=== PATIENT | male | born 1950 | race Caucasian/White ===

== ENCOUNTER → 2020-10-16 15:20 | Outpatient (BNVA) | payer MEDICARE, OTHER, SELFPAY | PROVIDERS: PCP Internal Medicine; Referring Provider Internal Medicine; Visit Provider Surgery | DX: S01.01XD Laceration without foreign body of scalp, subsequent encounter (principal) | CPT/HCPCS: 99202 ==

== ENCOUNTER → 2020-12-25 09:03 | Outpatient (BNVA) | payer MEDICARE, OTHER, SELFPAY | PROVIDERS: PCP Internal Medicine; Visit Provider Urology | DX: R39.12 Poor urinary stream (principal); N40.1 Benign prostatic hyperplasia with lower urinary tract symptoms; N13.8 Other obstructive and reflux uropathy | CPT/HCPCS: 99212 ==

== ENCOUNTER 2021-12-24 06:41 | Outpatient (REF) | payer MEDICARE, OTHER, SELFPAY ==
[2021-12-24 08:10] LABS: Prostate Specific Antigen 3.47 ng/mL (<0.05-4.0)
== END 2021-12-24 06:42 | disposition home or self-care (01) ==
LOC: HO.LAB 06:41
PROVIDERS: PCP Internal Medicine; Visit Provider Urology
DX: Z12.5 Encounter for screening for malignant neoplasm of prostate (principal); N40.1 Benign prostatic hyperplasia with lower urinary tract symptoms; N13.8 Other obstructive and reflux uropathy
CPT/HCPCS: 36415; 84153

== ENCOUNTER → 2021-12-29 08:27 | Outpatient (BNVA) | payer MEDICARE, OTHER, SELFPAY | PROVIDERS: PCP Internal Medicine; Visit Provider Urology | DX: N40.1 Benign prostatic hyperplasia with lower urinary tract symptoms (principal); N13.8 Other obstructive and reflux uropathy; R39.12 Poor urinary stream | CPT/HCPCS: 51798; 99212 ==

== ENCOUNTER 2022-07-21 10:31 | Observation (INO) | payer MEDICARE, OTHER, SELFPAY ==
--- NOTE | ~2022-07-21 | CT_ITS ---
EXAMINATION: CT ABDOMEN AND PELVIS WITHOUT CONTRAST CLINICAL INFORMATION: Abdominal pain COMPARISON: 09/07/2017 TECHNIQUE: Multidetector volumetric imaging was performed from the superior aspect of the liver through the pubic symphysis. Sagittal and coronal reformatted images were obtained on the technologist's workstation. This CT examination was performed using dose optimization techniques as appropriate, variously including the following: *Automated exposure control *Adjustment of mA and/or kV according to patient size (this includes techniques or standardized protocols for targeted exams where dose is matched to indication/reason for exam; i.e. extremities or head) *Use of iterative reconstruction technique DLP: 597 mGy-cm FINDINGS: LUNG BASES: Stable 3 mm left lower lobe nodule on image 8/100, most consistent with a benign etiology. LIVER, GALLBLADDER, AND BILIARY TREE: The liver is normal in size, shape, and attenuation. No focal hepatic lesion or biliary ductal dilatation is present. Multiple layering gallstones are present. No appreciable pericholecystic inflammation. PANCREAS: Mild fatty atrophy. SPLEEN: Mildly enlarged, measuring 14.1 cm in the axial plane. ADRENAL GLANDS: Unremarkable. KIDNEYS AND URETERS: Bilateral renal sinus cysts are suspected, without convincing hydronephrosis or obstructing calculus. Nonspecific bilateral perinephric stranding. BLADDER: Partially distended. Small amount of ill-defined calcification is noted in the right ureterovesicular junction, extending for approximately 1 cm, for which underlying bladder wall mass cannot be excluded. GASTROINTESTINAL TRACT: No evidence of bowel obstruction. There is focal wall thickening with surrounding inflammation at the site of a distal descending colon diverticulum, most consistent with acute diverticulitis. No pericolic abscess or free air is seen. The appendix is unremarkable. ABDOMINAL WALL: No significant hernia is appreciated. LYMPH NODES: Normal. VASCULAR: Scattered atherosclerotic calcifications. PELVIC VISCERA: Prostate gland appears enlarged, measuring up to 5.8 x 5.0 cm in the axial plane. OSSEOUS STRUCTURES: Scattered degenerative changes noted in the spine. CT/CT abdomen pelvis wo con IMPRESSION: 1. Diverticulitis of the distal descending colon. Correlation with recent or followup colonoscopy is advised to exclude an underlying mass lesion. 2. Small amount of ill-defined calcification in the bladder near the right ureterovesicular junction. Underlying bladder wall mass cannot be excluded, and further workup with cystoscopy is recommended. 3. Cholelithiasis. 4. Enlarged prostate gland. This critical result was discussed with Shalonda Solorzano NP on 07/21/2022 11:30 PM, and it was ascertained that the content and urgency of the report was understood at the time of direct communication.
--- NOTE | ~2022-07-21 | US_ITS ---
EXAMINATION: US ABDOMEN LIMITED CLINICAL INFORMATION: Right upper quadrant pain. COMPARISON: CT scan of the abdomen and pelvis from earlier today. Renal ultrasound dated 09/30/2017. TECHNIQUE: Real-time imaging of the right upper quadrant abdominal viscera. FINDINGS: PANCREAS: Visualized portions unremarkable. LIVER: Increased hepatic echotexture. No focal abnormality. GALLBLADDER: Multiple small gallstones without significant mural thickening or pericholecystic fluid. COMMON BILE DUCT: Normal in caliber measuring 0.3 cm in diameter. RIGHT KIDNEY: 12.6 cm. Anechoic parapelvic cysts are again seen. Tiny anechoic cortically based cyst measures 0.6 cm per No nephrolithiasis. Color Doppler showed no abnormal vascular flow. FREE FLUID: None. US/US abdomen limited IMPRESSION: 1. Hepatic steatosis. 2. Cholelithiasis without evidence for acute cholecystitis. 3. Right renal cysts demonstrate benign features correlating with previous CT findings.
[2022-07-21 10:35] VITALS: BP 120/77; PULSE 53; RESP 18; TEMP 36.8; O2SAT 97; BMI 30.1
[2022-07-21 13:17] LABS: MANUAL DIFF FLAG NO
[2022-07-21 13:20] LABS: Basophils Percent Auto 0.5 % (0-2); Eosinophils Absolute Auto 0.2 X10*3/uL (0.0-0.4); Hematocrit 42.6 % (42.0-52.0); Hemoglobin 14.1 g/dl (14.0-18.0); Imm Gran Abs Auto 0.02 X10*3/uL (0.00-0.03); Imm Gran Pct Auto 0.3 % (0.0-0.4); Lymphocytes Absolute Auto 1.4 X10*3/uL (1.2-4.9); Lymphocytes Percent Auto 18.4 % (20-40); Mean Corpuscular HGB Conc 33.1 g/dl (31.0-36.0); Mean Corpuscular Hemoglobin 28.5 pg (27.0-33.0); Mean Corpuscular Volume 86.1 fL (80.0-98.0); Mean Platelet Volume 9.1 fL (9.4-12.4); Monocytes Absolute Auto 0.5 X10*3/uL (0.1-1.2); Neutrophils Absolute Auto 5.5 x10*3/uL (2.0-8.3); Neutrophils Percent Auto 71.8 % (45-73); Platelet Count 172 X10*3/uL (160-400); Red Blood Count 4.95 X10*6/uL (4.60-5.80); Red Cell Distribution Width 13.4 % (11.0-16.0); White Blood Count 7.7 X10*3/uL (4.8-10.8)
[2022-07-21 13:33] LABS: COVID-19 Test Negative (Negative); IDNOW Serial# 16C4AD1C
[2022-07-21 13:42] LABS: Anion Gap 14 (12-20); Blood Urea Nitrogen 13 mg/dL (9-16); Calcium 9.5 mg/dL (8.4-10.2); Carbon Dioxide 31 mmol/L (22-29); Chloride 101 mmol/L (96-108); Creatinine Clr Calc Pharmacy 63.7; Estimated Glomerular Filt Rate 57; Glucose Random 99 mg/dL (60-115); Potassium 4.7 mmol/L (3.3-5.1); Sodium 141 mmol/L (135-145)
[2022-07-21 21:11] VITALS: BP 142/81; PULSE 50; RESP 18; TEMP 36.4; O2SAT 99
[2022-07-21 22:08] VITALS: BP 162/79; PULSE 52; RESP 16; TEMP 36.5; O2SAT 100
[2022-07-21 22:30] LABS: Alanine Aminotransferase 19 U/L (0-40); Albumin Level 4.3 g/dL (3.5-5.0); Alkaline Phosphatase 72 U/L (39-117); Aspartate Amino Transferase 16 U/L (5-37); Bilirubin Direct 0.9 mg/dL (0.0-0.5); Bilirubin Total 3.1 mg/dL (0.0-1.0); Lipase 28 U/L (8-78); Total Protein 7.1 g/dL (6.5-8.0)
--- NOTE | 2022-07-21 22:58 | ED_ITS ---
HPI - General Adult General Chief complaint: General Medical Stated complaint: lower abd pain Time Seen by Provider: 07/21/22 21:40 Source: patient Mode of arrival: ambulatory Limitations: no limitations History of Present Illness HPI narrative: This 71-year-old male with history of diverticulitis and BPH who presents to the emergency department with a complaint of left-sided abdominal pain for the past 3 days. He states that his abdominal pain is nonradiatin, is sharp in character and has been worsening over the past 3 days. He tells me that he feels bloated. He states that eating makes his pain worse, has not eaten since yesterday morning. He states that he is still able to pass flatus. Last bowel movement was earlier this morning and he reports that his bowel movements fluctuate between soft stool and loose dorothea. He does not have any urinary concerns however he tells me that his urine has been dark in coloration. Last colonoscopy was 2-3 years ago and it was normal. He reports a 5 year history of diverticulitis, last flare-up was 3 years ago, has not followed up with his GI in 3 years has his GI a retired and he has not found a new 1. Denies nausea, vomiting, fever, chills, back pain, hematuria, diarrhea, constipation. Onset (ago): day(s) (3) Location: abdomen Radiation: non-radiation Severity: moderate Quality: sharp Pain Consistency: constant Relieving factors: none Related Data Previous Rx's Medication Instructions Recorded lidocaine 5 % topical patch 1 patch topical DAILY 15 days #15 02/07/22 (Lidoderm) ea valacyclovir 1 gram tablet 1,000 mg PO Q8H 10 days #30 tabs 02/07/22 Allergies Allergy/AdvReac Type Severity Reaction Status Date / Time No Known Allergies Allergy Verified 12/29/21 08:32 [No Known Allergies*] Review of Systems Review of Systems: Constitutional : No Weight loss, No Fever, No Chills, No Fatigue, No Malaise ENT/Mouth : No sore throat, No Rhinorrhea Eyes: No Eye Pain, No Swelling, No Redness Cardiovascular : No Chest Pain, No SOB, No Dyspnea on Exertion, No Orthopnea, No Edema, No Palpitations Respiratory : No Cough, No Sputum, No Wheezing Gastrointestinal : No Nausea, No Vomiting, No Diarrhea, No Constipation, + abdominal Pain, No Hematochezia, No Melena Genitourinary : No Dysuria, No Urinary Frequency, No Hematuria, Musculoskeletal : No joint pain, No Myalgias, No Joint Swelling Skin : No Skin Lesions, No rash Neuro : No Weakness, No Numbness, No Dizziness, No Headache All other systems reviewed and are negative Yes all other systems are reviewed and are negative [facility] Past Medical History Attestation statement: The following information was validated with the patient. Source: old records reviewed and nursing notes reviewed Medical History Blunt trauma of neck Scalp laceration Traumatic arthropathy of right shoulder Family History Family History Father History of lung cancer Social History Social History Alcohol intake: never Patient Tobacco Use Status: Never used Tobacco Use of substances other than those prescribed or required for medical reasons: No Advance Directives: No Advance Directives Information Provided: No Physical Exam ED Vital Signs: Vital Signs - 24 hr 07/21/22 10:35 07/21/22 21:11 07/21/22 22:08 Temperature 98.2 F 97.5 F 97.7 F Pulse Rate 53 50 52 Respiratory Rate 18 18 16 Blood Pressure 120/77 142/81 H 162/79 H Pulse Oximetry 97 99 100 Oxygen Delivery Method Room Air Room Air 07/21/22 23:11 07/21/22 23:22 Temperature Pulse Rate 62 Respiratory Rate 16 16 Blood Pressure 143/75 H Pulse Oximetry 97 Oxygen Delivery Method Room Air BMI result Body Mass Index 30.1 vss, bradycardic Appearance: Alert.? Oriented X3.? No acute distress.? Patient lying comfortably on the bed secondary to pain. Head: Normocephalic, atraumatic, no step-offs or deformities Eyes: Pupils equal, round and reactive to light.? ENT: Pharynx normal.? Neck: Normal inspection.? Neck supple.? CVS: Normal heart rate and rhythm.? Pulses normal.? Respiratory: No respiratory distress.? Breath sounds normal.? Abdomen: Soft, distended, tender to palpation in the upper and left lower quadrants, hypoactive bowel sounds throughout. No rebound tenderness or guarding. Skin: Skin warm and dry.? Normal skin color.? Normal skin turgor.? Extremities: No lower extremity edema.? No calf ttp. 5/5 strength to bilateral upper and lower extremities Back: No midline tenderness, no C-spine tenderness, full range of motion, no CVA tenderness bilaterally Neuro: Oriented X 3.? No motor deficit.? No sensory deficit. Course Reevaluation(s) Reevaluation #1: CBC without infection. Chemistry significant for elevated bilirubin. Lipase within normal limits. COVID negative. Upon re-evaluation patient with slight tenderness to palpation in the right upper quadrant. States that it radiates to his left abdomen. Time: 23:07 Reevaluation #2: CT of the abdomen and pelvis with acute diverticulitis, patient given levofloxacin, metronidazole. CT of the abdomen pelvis with possible mass to bladder, educated patient on this, he verbalizes understanding. Ultrasound of the right upper quadrant with cholelithiasis however no acute cholecystitis. I do not suspect choledocholithiasis. After repeat exam patient only tender to left lower quadrant. I did a p.o. challenge on this patient, patient unable to tolerate p.o., complaining of nausea, vomiting. Patient has not been able to eat even prior to arriving to the emergency department still does not feel like he is able to eat, I do not feel comfortable discharging this patient home as he is not tolerating p.o., failed p.o. challenge. At this time patient will be admitted to the hospitalist for further intervention and treatment. Medical Decision Making [facility] Narrative Medical decision making narrative: [id number] This 71-year-old male presents to the ED with complaints of left-sided abdominal pain x3 days. History that diverticulitis requiring hospitalization. Physical exam significant for distended abdomen, tender to palpation in the left lower and left upper quadrants. Cardiac exam significant for regular rate and bradycardic rhythm. Lungs clear. Likely diverticulitis. Unlikely pancreatitis, appendicitis, cholecystitis. Plan at this time is to order basic labs, UA, CT of the abdomen and pelvis. Lab Data Result diagrams: 07/21/22 13:10 07/21/22 13:10 Labs: Lab Results 07/21/22 07/21/22 07/21/22 Range/Units 13:10 13:10 13:10 WBC 7.7 (4.8-10.8) X10*3/uL RBC 4.95 (4.60-5.80) X10*6/uL Hgb 14.1 (14.0-18.0) g/dl Hct 42.6 (42.0-52.0) % MCV 86.1 (80.0-98.0) fL MCH 28.5 (27.0-33.0) pg MCHC 33.1 (31.0-36.0) g/dl RDW 13.4 (11.0-16.0) % Plt Count 172 (160-400) X10*3/uL MPV 9.1 L (9.4-12.4) fL Immature Gran % (Auto) 0.3 (0.0-0.4) % Neut % (Auto) 71.8 (45-73) % Lymph % (Auto) 18.4 L (20-40) % [place] % (Auto) 7.0 (2-11) % Eos % (Auto) 2.0 (0-4) % Baso % (Auto) 0.5 (0-2) % Lymph # (Auto) 1.4 (1.2-4.9) X10*3/uL [place] # (Auto) 0.5 (0.1-1.2) X10*3/uL Eos # (Auto) 0.2 (0.0-0.4) X10*3/uL Baso # (Auto) 0.0 (0.0-0.2) X10*3/uL Abs Immat Gran (auto) 0.02 (0.00-0.03) X10*3/uL Absolute Neuts (auto) 5.5 (2.0-8.3) x10*3/uL Absolute Nucleated RBC 0.000 (0.0-0.012) X10*3/uL Nucleated RBC % (auto) 0.0 (0.0-0.2) /100WBC Sodium 141 (135-145) mmol/L Potassium 4.7 (3.3-5.1) mmol/L Chloride 101 (96-108) mmol/L Carbon Dioxide 31 H (22-29) mmol/L Anion Gap 14 (12-20) BUN 13 (9-16) mg/dL Creatinine 1.25 (0.5-1.4) mg/dL Estim Creat Clear Calc 63.7 Estimated GFR 57 Random Glucose 99 (60-115) mg/dL Calcium 9.5 (8.4-10.2) mg/dL Total Bilirubin 3.1 H (0.0-1.0) mg/dL Direct Bilirubin 0.9 H (0.0-0.5) mg/dL AST 16 (5-37) U/L ALT 19 (0-40) U/L Alkaline Phosphatase 72 (39-117) U/L Total Protein 7.1 (6.5-8.0) g/dL Albumin 4.3 (3.5-5.0) g/dL Lipase 28 (8-78) U/L COVID-19 (PIPE) Negative (Negative) COVID-19 Clin Com See Note Critical Care Time Critical Care Time Critical Care Time: No Discharge Plan Discharge Clinical Impression: Diverticulitis, Nausea & vomiting, Bladder mass, Hyperbilirubinemia Patient Disposition: Admitted As Inpatient Prescriptions: No Action valacyclovir 1 gram tablet 1,000 mg PO Q8H 10 Days Qty: 30 0RF lidocaine [Lidoderm] 5 % adhesive patch,medicated 1 patch topical DAILY 15 Days Qty: 15 0RF Rx Instructions: leave on most painful area for up to 12 hrs
[2022-07-21 23:11] VITALS: RESP 16
[2022-07-21] MEDS: Morphine Sulfate 4 MG/ML CARTRIDGE IVPUSH (23:11)
[2022-07-21] MEDS: 0.9 % Sodium Chloride 1,000 ML 999 ML IV (23:12)
[2022-07-21 23:22] VITALS: BP 143/75; PULSE 62; RESP 16; O2SAT 97
[2022-07-21] MEDS: metroNIDAZOLE 500 MG TABLET PO (23:48)
[2022-07-21] MEDS: levoFLOXacin 750 MG TABLET PO (23:48)
--- NOTE | 2022-07-22 | ECG_ITS ---
Test Reason : medical clearance Blood Pressure : / mmHG Vent. Rate : 058 BPM Atrial Rate : 058 BPM P-R Int : 172 ms QRS Dur : 076 ms QT Int : 448 ms P-R-T Axes : 053 -02 012 degrees QTc Int : 439 ms Sinus bradycardia Otherwise normal ECG When compared with ECG of 13-MAR-2019 06:43, No significant change was found Referred By: Johann Oconnell Electronically Signed By:NEREIDA SHIN
[2022-07-22 06:18] LABS: Appearance Urine Clear; Color Urine Dark Yellow; Glucose Urine UA Negative (Negative); Leukocyte Esterase Urine Negative (Negative); Nitrite Urine Negative (Negative); PH 5.5 (5.0-8.0); Specific Gravity - Urine 1.015 (1.005-1.025); Urine Blood Negative (Negative); Urine Ketones Trace mg/dL (Negative); Urine Protein 30 (1+) mg/dL (Neg-Trace)
[2022-07-22 06:23] LABS: Bacteria Urine None Seen (None Seen); Hyaline Casts Urine 0-2 /LPF (0-2); Squamous Epithelial Cell Urine 0-2 /HPF (0-2); WBC Urine 0-5 /HPF (0-5)
--- NOTE | 2022-07-22 06:31 | P.HPHOSP_ITS ---
History of Present Illness Date of Service: 07/22/22 Chief Complaint: Abdominal pain this is a 71-year-old male with past medical history of BPH who presents to the hospital with complaints of left lower quadrant abdominal pain. Patient reports the pain started on Tuesday, initially 10/10, subsided to 7/10, constant, sharp,nonradiating, worst with eating. Patient reports that he has not been eating or drinking much since Tuesday because he is afraid of worsening his condition. Patient has some nausea and dry heaving after trying to drink some water last night after taking the p.o. antibiotics, he reports that he was unable to tolerate after being NPO for couple of days. Patient denies any fever chills,No lower extremity edema. No chest pain,or shortness of breath. He has been having dark urine with no frequency, urgency or dysuria last colonoscopy 3 yrs ago-reports normal per pt On arrival to the ED patient hemodynamically stable with no significant abnormal vitals labs are significant for WBC count 7.7, hemoglobin 14.1, total bili of 3.1, direct bili of 0.9, AST of 16, ALT of 19, UA negative, Abdominal pelvic CT shows diverticulitis of the distal descending colon, abnormal calcification in the bladder near the right ureterovesicular region- mass cannot be excluded given that patient was unable to tolerate p.o. he will be admitted for IV antibiotics Review of Systems Review of Systems: Yes all other systems are reviewed and are negative [facility] Medical History Blunt trauma of neck Scalp laceration Traumatic arthropathy of right shoulder Family History Father History of lung cancer Social History Alcohol intake: never Patient Tobacco Use Status: Never used Tobacco Use of substances other than those prescribed or required for medical reasons: No Advance Directives: No Advance Directives Information Provided: No Meds Allergies Allergy/AdvReac Type Severity Reaction Status Date / Time No Known Allergies Allergy Verified 12/29/21 08:32 [No Known Allergies*] Active Medications: Current Medications Acetaminophen (Acetaminophen 325 Mg Tablet) 650 mg PO Q6H PRN PRN Reason: Pain, Mild (Pain Scale 1-3) Docusate Sodium (Docusate Sodium 100 Mg Capsule) 100 mg PO DAILY PRN PRN Reason: Constipation Enoxaparin Sodium (Enoxaparin Sodium 40 Mg/0.4 Ml Syringe) 40 mg SUBCUT Q24H SAVANAH Metronidazole (Flagyl) 500 mg in 100 mls @ 100 mls/hr IV Q8H SAVANAH Levofloxacin (Levaquin) 750 mg in 150 mls @ 100 mls/hr IV Q24H SAVANAH Lactated Ringer's (Lr) 1,000 mls @ 80 mls/hr IVCONT .[id number] SAVANAH Ondansetron HCl (Ondansetron Hcl 4 Mg/2 Ml Vial) 4 mg IVPUSH Q8H PRN PRN Reason: Nausea and Vomiting Pharmacy Consult (Consult Rx Perform Med Rec) 1 each MISCELLANE ONCE PRN PRN Reason: Consult order Sodium Chloride (0.9 % Sodium Chloride Flush 3 Ml Syringe) 3 ml IVFLUSH QSHIFT SAVANAH Physical Exam Vital Signs and Narrative: Vital Signs: Last Vital Signs Temp 97.7 F 07/21/22 22:08 Pulse 62 07/21/22 23:22 Resp 16 07/21/22 23:22 BP 143/75 H 07/21/22 23:22 Pulse Ox 97 07/21/22 23:22 O2 Del Method 07/21/22 23:22 BMI result Body Mass Index 30.1 Const: General: cooperative and no acute distress Orientation/ consciousness: patient oriented x3 Eyes: General: appearance normal, both eyes and all related structures Pupils: Equal, round and reactive pupils present Resp: Effort & Inspection: normal respiratory effort Auscultation: clear to auscultation bilaterally Cardio: Rate: regular rate Rhythm: regular rhythm GI: Other: abdomen is tender in the left lower quadrant, no rebound or guarding Palpation (GI): Soft to palpation Auscultation: normal bowel sounds Skin: General skin exam: no rashes or lesions noted Neuro: General: patient oriented x3 Cranial nerves: Yes Equal, round and reactive pupils present Cognition (Neuro): normal cognition Extrem: General: Yes normal to inspection and Yes no pedal edema Results Labs CBC and Chem 7: 07/21/22 13:10 07/21/22 13:10 Labs: Laboratory Results - last 24 hr 07/21/22 07/21/22 07/21/22 13:10 13:10 13:10 MCV 86.1 MCH 28.5 MCHC 33.1 RDW 13.4 Plt Count 172 MPV 9.1 L Immature Gran % (Auto) 0.3 Neut % (Auto) 71.8 Lymph % (Auto) 18.4 L [place] % (Auto) 7.0 Eos % (Auto) 2.0 Baso % (Auto) 0.5 Lymph # (Auto) 1.4 [place] # (Auto) 0.5 Eos # (Auto) 0.2 Baso # (Auto) 0.0 Abs Immat Gran (auto) 0.02 Absolute Neuts (auto) 5.5 Absolute Nucleated RBC 0.000 Nucleated RBC % (auto) 0.0 Anion Gap 14 Estim Creat Clear Calc 63.7 Estimated GFR 57 Random Glucose 99 Calcium 9.5 Total Bilirubin 3.1 H Direct Bilirubin 0.9 H AST 16 ALT 19 Alkaline Phosphatase 72 Total Protein 7.1 Albumin 4.3 Lipase 28 Urine Color Urine Appearance Urine pH Ur Specific [place] Urine Protein Urine Glucose (UA) Urine Ketones Urine Blood Urine Nitrite Ur Leukocyte Esterase Urine RBC Urine WBC Ur Squamous Epith Cells Urine Bacteria Hyaline Casts COVID-19 (PIPE) Negative COVID-19 Clin Com See Note 07/22/22 06:11 MCV MCH MCHC RDW Plt Count MPV Immature Gran % (Auto) Neut % (Auto) Lymph % (Auto) [place] % (Auto) Eos % (Auto) Baso % (Auto) Lymph # (Auto) [place] # (Auto) Eos # (Auto) Baso # (Auto) Abs Immat Gran (auto) Absolute Neuts (auto) Absolute Nucleated RBC Nucleated RBC % (auto) Anion Gap Estim Creat Clear Calc Estimated GFR Random Glucose Calcium Total Bilirubin Direct Bilirubin AST ALT Alkaline Phosphatase Total Protein Albumin Lipase Urine Color Dark Yellow Urine Appearance Clear Urine pH 5.5 Ur Specific [place] 1.015 Urine Protein 30 (1+) H Urine Glucose (UA) Negative Urine Ketones Trace Urine Blood Negative Urine Nitrite Negative Ur Leukocyte Esterase Negative Urine RBC 3-5 H Urine WBC 0-5 Ur Squamous Epith Cells 0-2 Urine Bacteria None Seen Hyaline Casts 0-2 COVID-19 (PIPE) COVID-19 Clin Com Imaging Radiologist's Impressions: Impressions Abdomen/Pelvis CT 07/21/22 22:55 IMPRESSION: 1. Diverticulitis of the distal descending colon. Correlation with recent or followup colonoscopy is advised to exclude an underlying mass lesion. 2. Small amount of ill-defined calcification in the bladder near the right ureterovesicular junction. Underlying bladder wall mass cannot be excluded, and further workup with cystoscopy is recommended. 3. Cholelithiasis. 4. Enlarged prostate gland. This critical result was discussed with Shalonda Solorzano NP on 07/21/2022 11:30 PM, and it was ascertained that the content and urgency of the report was understood at the time of direct communication. Abdomen Ultrasound 07/21/22 23:08 IMPRESSION: 1. Hepatic steatosis. 2. Cholelithiasis without evidence for acute cholecystitis. 3. Right renal cysts demonstrate benign features correlating with previous CT findings. Assessment and Plan (1) Diverticulitis: Status: Acute (2) Nausea & vomiting: Status: Acute (3) Bladder mass: Status: Acute Plan 71-year-old male with past medical history of BPH presents to the hospital with complaints of left lower quadrant abdominal pain found to have acute diverticulitis # acute diverticulitis - patient reports a history of diverticulitis, last colonoscopy 3 years ago per patient was normal - will treat with IV antibiotics as patient unable to tolerate p.o. - will advance diet gradually, starting with clear liquids # nausea vomiting - likely secondary to above - supportive care - antiemetics # bladder mass - abnormal CT of the abdomen concerning for bladder mass - will consult Urology for further evaluation DVT prophylaxis: Lovenox Quality Stroke Does the patient have a stroke diagnosis?: No VTE Prior VTE?: No VTE Risk Level:: Medical - moderate - high VTE Device Contraindication: Treatment Not Indicated VTE Drug Contraindication: N/A - Med Ordered
[2022-07-22 06:55] VITALS: BP 137/72; PULSE 58; RESP 16; O2SAT 97
--- NOTE | 2022-07-22 08:12 | PHA.MEDREC ---
Pharmacy Consult ? Medication Reconciliation Pharmacy has completed the medication reconciliation. Patient attests to not being on anything.
[2022-07-22] MEDS: Lactated Ringers 1,000 ML 80 ML IVCONT (08:32)
[2022-07-22] MEDS: metroNIDAZOLE/NS 500 MG/100 ML PIGGYBACK 100 MG IV (08:32)
[2022-07-22] MEDS: Enoxaparin Sodium 40 MG/0.4 ML SYRINGE SUBCUT (08:32)
--- NOTE | 2022-07-22 08:42 | PC.NURSE ---
Pt is ao x 3. Resting quietly. Breathing is even and unlabored. Abd is soft, mildly distended, nontender. Skin is warm and dry. LR running, with flagyl IVPB on left ac iv. Pt is aware of the plan of care. Will continue to monitor.
[2022-07-22] MEDS: levoFLOXacin/D5W 750 MG/150 ML PIGGYBACK 100 MG IV (09:53)
[2022-07-22 09:59] VITALS: BP 139/71; PULSE 54; RESP 14; O2SAT 97
--- NOTE | 2022-07-22 11:16 | MHC.CM.PN ---
PT REPORTS HE LIVES WITH HIS , IS FULLY INDEPENDENT, AND WORKS [employer]. PT DENIES USE OF DME OR HOME/COMMUNITY SERVICES PT DOES NOT HAVE A HCP AND DECLINES TO COMPLETE ONE PT IS NOT COVID-19 VACCINATED PCP: NEREIDA CALDERON OBSERVATION NOTICE DELIVERED, COPY SENT TO [facility] CURRENT DC PLAN IS HOME WITH NO SERVICES TO TRANSPORT
--- NOTE | 2022-07-22 11:55 | PM.EVENT ---
Event Note Date of Service: 07/22/22 Event Note: Seen and evaluated this morning Pain is better controlled now with still having nausea As to start diet, will start with clear liquids continue IV antibiotics of ELENA Oconnor for reported side effects Repeat blood work in the morning and advanced diet as tolerated
--- NOTE | 2022-07-22 14:18 | PC.NURSE ---
Pt ate half a container of jello, half a cup of water, and a few sips of ross octavia. Pt reports no pain or nausea at this time. Will continue to monitor.
[2022-07-22 20:03] VITALS: BP 128/83; PULSE 63; RESP 18; TEMP 37.1; O2SAT 98
[2022-07-23 02:31] VITALS: BP 135/68; PULSE 68; RESP 18; TEMP 37; O2SAT 98
[2022-07-23 02:32] VITALS: BMI 27.8
[2022-07-23] MEDS: Lactated Ringers 1,000 ML 80 ML IVCONT (05:56)
[2022-07-23] MEDS: Enoxaparin Sodium 40 MG/0.4 ML SYRINGE SUBCUT (06:00)
[2022-07-23 06:03] LABS: MANUAL DIFF FLAG NO
[2022-07-23 06:16] LABS: Basophils Percent Auto 0.6 % (0-2); Eosinophils Absolute Auto 0.1 X10*3/uL (0.0-0.4); Eosinophils Percent Auto 1.9 % (0-4); Hematocrit 38.2 % (42.0-52.0); Hemoglobin 12.7 g/dl (14.0-18.0); Imm Gran Abs Auto 0.01 X10*3/uL (0.00-0.03); Imm Gran Pct Auto 0.2 % (0.0-0.4); Lymphocytes Absolute Auto 0.8 X10*3/uL (1.2-4.9); Lymphocytes Percent Auto 16.2 % (20-40); Mean Corpuscular HGB Conc 33.2 g/dl (31.0-36.0); Mean Corpuscular Hemoglobin 28.1 pg (27.0-33.0); Mean Corpuscular Volume 84.5 fL (80.0-98.0); Mean Platelet Volume 9.3 fL (9.4-12.4); Monocytes Absolute Auto 0.4 X10*3/uL (0.1-1.2); Monocytes Percent Auto 7.5 % (2-11); Neutrophils Absolute Auto 3.8 x10*3/uL (2.0-8.3); Neutrophils Percent Auto 73.6 % (45-73); Platelet Count 162 X10*3/uL (160-400); Red Blood Count 4.52 X10*6/uL (4.60-5.80); Red Cell Distribution Width 12.8 % (11.0-16.0); White Blood Count 5.2 X10*3/uL (4.8-10.8)
[2022-07-23 06:41] LABS: Anion Gap 13 (12-20); Blood Urea Nitrogen 16 mg/dL (9-16); Calcium 8.7 mg/dL (8.4-10.2); Carbon Dioxide 29 mmol/L (22-29); Chloride 103 mmol/L (96-108); Creatinine Clr Calc Pharmacy 67.9; Estimated Glomerular Filt Rate > 60; Glucose Random 117 mg/dL (60-115); Potassium 4.3 mmol/L (3.3-5.1); Sodium 141 mmol/L (135-145)
[2022-07-23 07:30] VITALS: BP 140/84; PULSE 59; RESP 18; TEMP 36; O2SAT 97
[2022-07-23] MEDS: levoFLOXacin/D5W 750 MG/150 ML PIGGYBACK 100 MG IV (08:50)
[2022-07-23] MEDS: 0.9 % Sodium Chloride Flush 3 ML SYRINGE IVFLUSH (08:50)
[2022-07-23 11:36] VITALS: BP 140/77; PULSE 66; RESP 20; TEMP 36.4; O2SAT 96
--- NOTE | 2022-07-23 11:45 | MHC.CM.PN ---
Male 71 DX Diverticulitis OBS discharge to home today. No home services needed, or ordered. [employer] will provide transportation home.
--- NOTE | 2022-07-23 12:19 | P.DS_ITS ---
DS: Providers Provider Date of Service: 07/23/22 Date of admission: 07/22/22 06:27 Primary care physician: Jase Boss DO Consults: 07/22/22 06:36 Consult to Urology Routine Consulting Provider: Miguel Tsai Reason for consultation: abnormal ct- concern for bladder mass DS: Diagnosis Discharge Diagnosis (1) Diverticulitis: Status: Acute (2) Nausea & vomiting: Status: Acute (3) Bladder mass: Status: Acute DS: Summary Hospital Course Hospital Course: Admission note HPI ?this is a 71-year-old male with past medical history of BPH who presents to the hospital with complaints of left lower quadrant abdominal pain.? Patient reports the pain started on Tuesday, initially 10/10, subsided to 7/10, constant, sharp,nonradiating, worst with eating.? Patient reports that he has not been eating or drinking much since Tuesday because he is afraid of worsening his condition.? Patient has some nausea and dry heaving after trying to drink some water last night after taking the p.o. antibiotics, he reports that he was unable to tolerate after being NPO for couple of days.? Patient denies any fever chills,No lower extremity edema.? No chest pain,or shortness of breath. He has been having dark urine with no frequency, urgency or dysuria last colonoscopy 3 yrs ago-reports normal per pt On arrival to the ED patient hemodynamically stable with no significant abnormal vitals labs are significant for? WBC count 7.7, hemoglobin 14.1, total bili of 3.1, direct bili of 0.9, AST of 16, ALT of 19, UA negative, Abdominal pelvic CT shows diverticulitis of the distal descending colon, abnormal calcification in the bladder near the right ureterovesicular region-? mass cannot be excluded ?given that patient was unable to tolerate p.o. he will be admitted for IV antibiotics Hospital course The patient was admitted to the hospital for evaluation left lower abdominal pain. CT scan of the abdomen was consistent with acute diverticulitis attack. Treated with IV fluid and IV antibiotics with good response over the course of hospital stay as his diet was advanced gradually with good tolerance. Advised to continue Levaquin for 5 more days to finish total of 7 days of antibiotics and to advance his diet as tolerated with focusing more on high-fiber diet. CT scan also reported a concern of possible bladder mass. Discussed with Urology with a plan to follow-up as outpatient for further evaluation. Advance your diet as tolerated, focus on high fiber diet Continue Levaquin for the next 5 days To follow-up with your plating tank operator for possible colonoscopy To follow-up with Dr. Tsai as outpatient for further evaluation of abnormal CT scan Time Spent with Patient Time attestation: Total time spent providing and/or coordinating discharge services: Discharge coordination time: Greater than 30 minutes Quality: Safe Use of Opioids Does Pt have an Active Cancer Diagnosis on the Problem List?: No Quality: Stroke Does the patient have a stroke diagnosis?: No Physical Exam Vital Signs: Vital Signs: Last Vital Signs Temp 97.5 F 07/23/22 11:36 Pulse 66 07/23/22 11:36 Resp 20 07/23/22 11:36 BP 140/77 H 07/23/22 11:36 Pulse Ox 96 07/23/22 11:36 O2 Del Method 07/23/22 11:36 BMI result Body Mass Index 27.8 Const: Other: Constitutional : Alert, oriented, not in distress Neck : Normal inspection, Supple Cardiovascular : RRR, no JVP, no lower extremity edema Respiratory : fair bilateral air entry, no crackles, wheezes or rhonchi Gastrointestinal: soft, lax, Normal bowel sounds, Non tender Skin : Warm, Dry Neurological : Alert & oriented x3, No focal deficit , CN 2-12 within normal DS: Data Data Completed and Pending Labs on day of discharge: Laboratory Results - last 24 hr 07/23/22 07/23/22 05:45 05:45 WBC 5.2 RBC 4.52 L Hgb 12.7 L Hct 38.2 L MCV 84.5 MCH 28.1 MCHC 33.2 RDW 12.8 Plt Count 162 MPV 9.3 L Immature Gran % (Auto) 0.2 Neut % (Auto) 73.6 H Lymph % (Auto) 16.2 L [place] % (Auto) 7.5 Eos % (Auto) 1.9 Baso % (Auto) 0.6 Lymph # (Auto) 0.8 L [place] # (Auto) 0.4 Eos # (Auto) 0.1 Baso # (Auto) 0.0 Abs Immat Gran (auto) 0.01 Absolute Neuts (auto) 3.8 Absolute Nucleated RBC 0.000 Nucleated RBC % (auto) 0.0 Sodium 141 Potassium 4.3 Chloride 103 Carbon Dioxide 29 Anion Gap 13 BUN 16 Creatinine 1.13 Estim Creat Clear Calc 67.9 Estimated GFR > 60 Random Glucose 117 H Calcium 8.[address] scan - abdomen: Radiologist's impression: ITS Impressions Abdomen/Pelvis CT 07/21/22 22:55 IMPRESSION: 1. Diverticulitis of the distal descending colon. Correlation with recent or followup colonoscopy is advised to exclude an underlying mass lesion. 2. Small amount of ill-defined calcification in the bladder near the right ureterovesicular junction. Underlying bladder wall mass cannot be excluded, and further workup with cystoscopy is recommended. 3. Cholelithiasis. 4. Enlarged prostate gland. This critical result was discussed with Shalonda Solorzano NP on 07/21/2022 11:30 PM, and it was ascertained that the content and urgency of the report was understood at the time of direct communication. Abdomen Ultrasound 07/21/22 23:08 IMPRESSION: 1. Hepatic steatosis. 2. Cholelithiasis without evidence for acute cholecystitis. 3. Right renal cysts demonstrate benign features correlating with previous CT findings. Discharge Plan Discharge Patient Disposition: Home, Self-Care Discharge Diagnosis: Acute diverticulitis Bladder mass Referrals: Jase Boss DO [Primary Care Provider] - 1 Week Discharge Medications: New levofloxacin 500 mg tablet 500 mg PO Q24H Qty: 5 0RF Discharge Orders: Discharge Order (Routine); Ordered 07/23/22 Ordered By: Johann Oconnell Diet: High fiber diet Activity on Discharge: As tolerated Stand Alone Forms: Patient Portal Discharge page Care Plan Goals: Read below Health Concerns: Read below Plan of Treatment: Read below Assessment: You were admitted to the hospital for evaluation of abdominal pain. CT of the abdomen was consistent with acute diverticulitis. Improved significantly with IV fluid and antibiotic treatment. CT scan was also concerning for a bladder wall thickening. Discussed with urologist Dr. Tsai with plan to follow-up as outpatient for further evaluation. Advance your diet as tolerated, focus on high fiber diet Continue Levaquin for the next 5 days To follow-up with your plating tank operator for possible colonoscopy To follow-up with Dr. Tsai as outpatient for further evaluation of abnormal CT scan Patient Instructions: Diverticulitis (DC)
[2022-07-23 12:22] LABS: Alanine Aminotransferase 16 U/L (0-40); Albumin Level 3.6 g/dL (3.5-5.0); Alkaline Phosphatase 64 U/L (39-117); Aspartate Amino Transferase 17 U/L (5-37); Bilirubin Direct 0.7 mg/dL (0.0-0.5); Bilirubin Total 1.9 mg/dL (0.0-1.0)
== END 2022-07-23 14:55 | disposition home or self-care (01) ==
LOC: HO.ED 07-22 05:00 → HO.EDOVER 07-22 06:31 → HO.IMC 07-22 23:48
PROVIDERS: Physician Assistant; Admitting Provider Internal Medicine; Emergency Provider Internal Medicine; PCP Internal Medicine; Visit Provider Student in an Organized Health Care Education/Training Program
DX: K57.32 Diverticulitis of large intestine without perforation or abscess without bleeding (principal); N32.89 Other specified disorders of bladder; E80.6 Other disorders of bilirubin metabolism; Z20.822 Contact with and (suspected) exposure to COVID-19; R11.2 Nausea with vomiting, unspecified; K76.0 Fatty (change of) liver, not elsewhere classified; K80.20 Calculus of gallbladder without cholecystitis without obstruction
CPT/HCPCS: 36415; 74176; 76705; 80048; 80076; 81001; 83690; 85025; 87635; 93005; 96361; 96365; 96366; 96372; 96374; 99219; 99285; J1650; J1956; J2270

== ENCOUNTER → 2022-08-25 09:58 | Outpatient (BNVA) | payer MEDICARE, OTHER, SELFPAY | PROVIDERS: PCP Internal Medicine; Visit Provider Urology | DX: N32.89 Other specified disorders of bladder (principal); N40.1 Benign prostatic hyperplasia with lower urinary tract symptoms; N13.8 Other obstructive and reflux uropathy | CPT/HCPCS: 52000; 99212 ==

== ENCOUNTER 2022-12-24 06:04 | Outpatient (REF) | payer MEDICARE, OTHER, SELFPAY ==
[2022-12-24 08:13] LABS: Prostate Specific Antigen 3.88 ng/mL (<0.05-4.0)
== END 2022-12-24 06:05 | disposition home or self-care (01) ==
LOC: HO.LAB 06:04
PROVIDERS: PCP Internal Medicine; Visit Provider Urology
DX: Z12.5 Encounter for screening for malignant neoplasm of prostate (principal); N40.1 Benign prostatic hyperplasia with lower urinary tract symptoms; N13.8 Other obstructive and reflux uropathy
CPT/HCPCS: 36415; 84153

== ENCOUNTER → 2022-12-30 08:26 | Outpatient (BNVA) | payer MEDICARE, OTHER, SELFPAY | PROVIDERS: PCP Internal Medicine; Visit Provider Urology | DX: N32.89 Other specified disorders of bladder (principal); N40.1 Benign prostatic hyperplasia with lower urinary tract symptoms; N13.8 Other obstructive and reflux uropathy | CPT/HCPCS: 51798; 99212 ==

== ENCOUNTER 2023-12-28 06:08 | Outpatient (REF) | payer MEDICARE, OTHER, SELFPAY ==
[2023-12-28 08:17] LABS: Prostate Specific Antigen 4.35 ng/mL (<0.05-4.0)
== END 2023-12-28 06:09 | disposition home or self-care (01) ==
LOC: HO.LAB 06:08
PROVIDERS: PCP Internal Medicine; Visit Provider Urology
DX: Z12.5 Encounter for screening for malignant neoplasm of prostate (principal); N40.1 Benign prostatic hyperplasia with lower urinary tract symptoms; N13.8 Other obstructive and reflux uropathy
CPT/HCPCS: 36415; 84153

== ENCOUNTER 2023-12-30 08:25 | Outpatient (AMB) | payer MEDICARE, OTHER, SELFPAY ==
--- NOTE | 2023-12-30 08:29 | MHC.OFFVIS ---
Intake Intake Visit Reasons: 1Y PSA(set) Intake Note: Patient presents today for a yearly follow-up Meds- None Allergies to Antibiotic- No Known Allergies Blood Thinner- None Post Void Residual:44 Patient Symptoms: Patient stated he doing very well, and is not taking any medications since he had surgery Assistant Athletic Trainer Required: No Accompanied by: Self / Same As Patient Allergies Seasonal Allergies Allergy (Mild, Verified 12/30/23 08:43) Itchy Eyes Medication List - Last Reconciled 12/30/23 by Miguel Tsai MD No Known Home Meds HPI HPI Comments History of Present Illness Details Víctor NINO is a very pleasant male. He is a patient of Dr Boss. He is seen in the office today for the following urologic conditions. - lower urinary tract symptoms PSA 12/20 3.9, 12/21 4.4 - no medications PVR 45 Adequate urinary performance, effective storage, complete emptying, sufficient stream Six-month follow-up check PSA Lower Urinary Tract Symptoms: Prior treatments include 06/15 , laser procedure Prostate Symptom Score 03/16 , Moderate (9-19), Bother 3 12/17 , Mild (0-8), Bother 2. Symptoms include 03/16 , incomplete emptying, weak stream, intermittency, nocturia (>2), and are progressing. Results from testing include cystoscopy Trilobar hypertrophy 03/16 renal/bladder us Yes date 03/23/2019 PVR 90 prostate size 90 Prostate volume 30-50gm. - PSA 12/17 2.9, 12/19 3.5, 12/20 3.8 Testing at next visit will include bladder scan. [facility] Medical History Bladder mass Blunt trauma of neck History of kidney stones Incomplete emptying of bladder Scalp laceration Traumatic arthropathy of right shoulder Surgical History History of surgery Family History Father History of lung cancer Social History Alcohol intake: never Patient Tobacco Use Status: Never used Tobacco service: No Current occupational status: employed Review of Systems Const Denies chills and Denies fever(s) Card Reports no additional complaints and Denies syncope Resp Denies cough GI Denies abdominal pain and Denies heartburn Reports as per HPI and Denies change in libido Neuro Denies syncope Psych Denies change in libido Endo Denies change in libido Physical Exam Const General: cooperative, healthy appearing, comfortable and no acute distress Orientation/consciousness: patient oriented x3 HEENT Face and sinus: Yes normal facial exam Mouth: moist mucous membranes Neck Neck: Yes normal visual inspection, Yes full ROM and Yes trachea midline Chest Chest palpation & inspection: normal inspection of the chest Resp Effort & Inspection: normal respiratory effort, able to speak in complete sentences and no respiratory distress GI Inspection: Yes normal to inspection Back/Spine/Pelvis Cervical Spine: normal cervical lordosis Thoracic/Lumbar Spine: thoracic and lumbar spine normal to inspection Skin General skin exam: no rashes or lesions noted Neuro General: patient oriented x3, gait normal, tone normal and moves all extremities Extrem General: Yes normal to inspection and Yes capillary refill normal Results AMB Urinalysis, Automated UA Leukoctes 0 Adiel/uL Last Edit by Sheryl Miller CMA on 12/30/23 08:45 UA Nitrite Negative Last Edit by hSeryl Miller CMA on 12/30/23 08:45 UA Urobilinogen 0.2 mg/dL Last Edit by Sheryl Miller CMA on 12/30/23 08:45 UA Protein 15 mg/dL Last Edit by Sheryl Miller CMA on 12/30/23 08:45 UA pH 6.0 Last Edit by Sheryl Miller [facility] on 12/30/23 08:45 UA Blood 0 Da/uL Last Edit by Sheryl Miller [employer] on 12/30/23 08:45 UA Specific [place] 1.025 Last Edit by Sheryl Miller CMA on 12/30/23 08:45 UA Ketone Negative Last Edit by Sheryl Miller CMA on 12/30/23 08:45 UA Bilirubin 0 mg/dL Last Edit by Sheryl Miller CMA on 12/30/23 08:45 UA Glucose 0 mg/dL Last Edit by Sheryl Miller CMA on 12/30/23 08:45 Assessment & Plan Assessment & Plan (1) BPH w urinary obs/LUTS: Code(s): N40.1 - Benign prostatic hyperplasia with lower urinary tract symptoms; N13.8 - Other obstructive and reflux uropathy Plan Six-month follow-up PSA Orders: Orders AMB Urinalysis Automated Today R33.9 - Retention of urine, unspecified Prostate Specific Antigen 6 Months N13.8 - Other obstructive and reflux uropathy, N40.1 - Benign prostatic hyperplasia with lower urinary tract symptoms Patient Instructions: Imaging studies, laboratory and physical exam results were discussed and reviewed in detail. No major barriers to patient understanding were identified. An opportunity to ask questions regarding the treatment plan was provided. All questions were answered. The patient expressed understanding and agreement with the above treatment plan. The patient is aware they should contact our office by phone for worsening of their current condition or the appearance of new urologic symptoms. Compliance is encouraged with any medications and followup testing that is ordered. It is a privilege to participate in the urologic care of your patient. If you have any questions or concerns regarding treatment for the above conditions, or other urologic issues, please do not hesitate to contact me. The office telephone contact is [phone]. This note is constructed using voice recognition software. While every effort has been made to ensure accuracy optical model maker and tester errors may have been included. Yours sincerely, Dr Miguel Tsai MD, [facility] - Urology Providers of Expert, Compassionate Care for the Genitourinary System Coding Level of Care Code Est Pt Level 4 (13929) Diagnoses BPH w urinary obs/LUTS N40.1; N13.8
== END 2023-12-30 09:09 | disposition home or self-care (01) ==
PROVIDERS: Visit Provider Urology
DX: N40.1 Benign prostatic hyperplasia with lower urinary tract symptoms (principal); N13.8 Other obstructive and reflux uropathy; R33.9 Retention of urine, unspecified
CPT/HCPCS: 99213

== ENCOUNTER → 2023-12-30 08:25 | Outpatient (BNVA) | payer MEDICARE, OTHER, SELFPAY | PROVIDERS: Visit Provider Urology | DX: N40.1 Benign prostatic hyperplasia with lower urinary tract symptoms (principal); N13.8 Other obstructive and reflux uropathy | CPT/HCPCS: 81003; 99212 ==

== ENCOUNTER 2024-05-22 05:15 | Emergency (ER) | payer MEDICARE, OTHER, SELFPAY ==
[2024-05-22 05:17] VITALS: BP 106/69; PULSE 65; RESP 18; TEMP 36.4; O2SAT 96; BMI 30.8
--- NOTE | 2024-05-22 05:32 | ED_ITS ---
HPI - Abdominal Pain General Chief Complaint: Abdominal Pain Stated Complaint: Diverticulitis Time Seen by Provider: 05/22/24 05:28 Source: patient Mode of arrival: ambulatory Limitations: no limitations History of Present Illness ED Provider: Dr. eGronimo HPI narrative: Patient with a history of diverticulitis x 3. No surgery. Patient is having increased LLQ pain with small stools consistent with prior diverticulitis MD elicited complaint: abdominal pain Pertinent past history: diverticulitis Onset (ago): day(s) Pain Consistency: intermittent Related Data Previous Rx's ?Medication ?Instructions ?Recorded levofloxacin 500 mg tablet 500 mg PO DAILY 10 days #10 tabs 05/22/24 metronidazole 500 mg tablet 500 mg PO TID #30 tabs 05/22/24 Allergies Allergy/AdvReac Type Severity Reaction Status Date / Time Seasonal Allergies Allergy Mild Itchy Eyes Verified 05/22/24 05:17 Review of Systems Review of Systems Yes all other systems are reviewed and are negative Denies Sensory deficit (Neuro) PMFSH Past Medical History Medical History Incomplete emptying of bladder History of kidney stones Bladder mass Traumatic arthropathy of right shoulder Blunt trauma of neck Scalp laceration Surgical History History of surgery Family History Family History Father History of lung cancer Social History Social History Alcohol intake: never Patient Tobacco Use Status: Never used Tobacco Advance Directives: No Advance Directives Information Provided: Yes service: No Current occupational status: employed Physical Exam ED Vital Signs: Vital Signs - 24 hr 05/22/24 05:17 05/22/24 06:37 Temperature 97.6 F 97.8 F Pulse Rate 65 52 Respiratory Rate 18 16 Blood Pressure 106/69 123/73 Pulse Oximetry 96 96 Oxygen Delivery Method Room Air Room Air BMI result Body Mass Index 30.8 Const General: healthy appearing Nutritional Appearance: average body habitus Orientation/consciousness: oriented to person and patient oriented x3 Limitations: no limitations HENMT Head: Yes normal to inspection Ears: external ears normal General nose exam: Normal external nose present Mouth: Normal oral and palatal mucosa present and oropharynx normal Throat: Yes posterior oropharynx normal Eyes General: appearance normal, both eyes and all related structures Neck Neck: Yes normal visual inspection Chest Chest palpation & inspection: normal inspection of the chest Resp Auscultation: clear to auscultation bilaterally Cardio Jugular venous distension: no JVD Rate: regular rate Rhythm: regular rhythm Heart sounds: S1 normal heart sound present and S2 normal heart sound present GI Other: slight LLQ tenderness no guarding no rebound Inspection: Yes normal to inspection Palpation (GI): Soft to palpation and No hepatosplenomegaly present Auscultation: normal bowel sounds General: Yes no CVA tenderness Back/Spine/Pelvis Back: no CVA tenderness Skin General skin exam: no rashes or lesions noted Neuro General: oriented to person and patient oriented x3 Cranial nerves: Yes CN's II-XII intact bilaterally Motor exam (neuro): 5/5 motor strength present throughout Sensory Exam: No Sensory deficit (Neuro) Extrem General: Yes normal to inspection Psych Appearance: grossly normal Course Reevaluation(s) Reevaluation #1: will treat patient for early diverticultis Time: 06:55 Medical Decision Making Differential Diagnosis Differential Diagnoses: The differential diagnosis associated with the presentation includes (diverticulitis, constipation, IBS) Admission/Observation Consideration of admission/observation: Escalation of care including admission/observation considered (upon arrival patient was considered for admission) Lab Data 05/22/24 05:39 05/22/24 05:39 Labs: Lab Results 05/22/24 05/22/24 Range/Units 05:39 06:38 WBC 5.4 (4.8-10.8) X10*3/uL RBC 4.87 (4.60-5.80) X10*6/uL Hgb 14.1 (14.0-18.0) g/dl Hct 40.6 L (42.0-52.0) % MCV 83.4 (80.0-98.0) fL MCH 29.0 (27.0-33.0) pg MCHC 34.7 (31.0-36.0) g/dl RDW 13.4 (11.0-16.0) % Plt Count 167 (160-400) X10*3/uL MPV 9.1 L (9.4-12.4) fL Immature Gran % (Auto) 0.2 (0.0-0.4) % Neut % (Auto) 68.3 (45-73) % Lymph % (Auto) 19.5 L (20-40) % [place] % (Auto) 7.4 (2-11) % Eos % (Auto) 3.9 (0-4) % Baso % (Auto) 0.7 (0-2) % Lymph # (Auto) 1.1 L (1.2-4.9) X10*3/uL [place] # (Auto) 0.4 (0.1-1.2) X10*3/uL Eos # (Auto) 0.2 (0.0-0.4) X10*3/uL Baso # (Auto) 0.0 (0.0-0.2) X10*3/uL Abs Immat Gran (auto) 0.01 (0.00-0.03) X10*3/uL Absolute Neuts (auto) 3.7 (2.0-8.3) x10*3/uL Absolute Nucleated RBC 0.000 (0.0-0.012) X10*3/uL Nucleated RBC % (auto) 0.0 (0.0-0.2) /100WBC Sodium 142 (135-145) mmol/L Potassium 4.0 (3.3-5.1) mmol/L Chloride 106 (96-108) mmol/L Carbon Dioxide 26 (22-29) mmol/L Anion Gap 14 (12-20) BUN 11 (9-16) mg/dL Creatinine 1.18 (0.5-1.4) mg/dL Estim Creat Clear Calc 66.2 Estimated GFR > 60 Random Glucose 130 H (60-115) mg/dL Calcium 9.6 D (8.4-10.2) mg/dL Total Bilirubin 2.4 H (0.0-1.0) mg/dL Direct Bilirubin 0.7 H (0.0-0.5) mg/dL AST 19 (5-37) U/L ALT 24 (0-40) U/L Alkaline Phosphatase 70 (39-117) U/L Total Protein 7.0 (6.5-8.0) g/dL Albumin 4.2 (3.5-5.0) g/dL Lipase 26 (8-78) U/L Urine Color Yellow Urine Appearance Clear Urine pH 6.0 (5.0-9.0) Ur Specific [place] 1.010 (1.005-1.025) Urine Protein Trace (Neg-Trace) mg/dL Urine Glucose (UA) Negative (Negative) mg/dL Urine Ketones Negative (Negative) mg/dL Urine Blood Negative (Negative) Urine Nitrite Negative (Negative) Ur Leukocyte Esterase Negative (Negative) External Record Review External record reviewed: Outpatient record Tests considered The following testing was considered but not selected: CT of abdomen considered but patient not toxic with minimal pain and normal labs Prescription Management I considered prescription management with: Pain Medication (will not give patient narcotics for early diverticulitis) Discharge Plan Discharge Clinical Impression: Diverticulitis Patient Disposition: Home, Self-Care Instructions: Diverticulitis (ED) Prescriptions: New levofloxacin 500 mg tablet 500 mg PO DAILY 10 Days Qty: 10 0RF metronidazole 500 mg tablet 500 mg PO TID Qty: 30 0RF Referrals: Jase Boss DO [Primary Care Provider] - 5 days Print Language: Egyptian
[2024-05-22 05:43] LABS: MANUAL DIFF FLAG NO
[2024-05-22 05:44] LABS: Basophils Percent Auto 0.7 % (0-2); Eosinophils Absolute Auto 0.2 X10*3/uL (0.0-0.4); Eosinophils Percent Auto 3.9 % (0-4); Hematocrit 40.6 % (42.0-52.0); Hemoglobin 14.1 g/dl (14.0-18.0); Imm Gran Abs Auto 0.01 X10*3/uL (0.00-0.03); Imm Gran Pct Auto 0.2 % (0.0-0.4); Lymphocytes Absolute Auto 1.1 X10*3/uL (1.2-4.9); Lymphocytes Percent Auto 19.5 % (20-40); Mean Corpuscular HGB Conc 34.7 g/dl (31.0-36.0); Mean Corpuscular Volume 83.4 fL (80.0-98.0); Mean Platelet Volume 9.1 fL (9.4-12.4); Monocytes Absolute Auto 0.4 X10*3/uL (0.1-1.2); Monocytes Percent Auto 7.4 % (2-11); Neutrophils Absolute Auto 3.7 x10*3/uL (2.0-8.3); Neutrophils Percent Auto 68.3 % (45-73); Platelet Count 167 X10*3/uL (160-400); Red Blood Count 4.87 X10*6/uL (4.60-5.80); Red Cell Distribution Width 13.4 % (11.0-16.0); White Blood Count 5.4 X10*3/uL (4.8-10.8)
[2024-05-22 06:02] LABS: Alanine Aminotransferase 24 U/L (0-40); Albumin Level 4.2 g/dL (3.5-5.0); Alkaline Phosphatase 70 U/L (39-117); Anion Gap 14 (12-20); Aspartate Amino Transferase 19 U/L (5-37); Bilirubin Direct 0.7 mg/dL (0.0-0.5); Bilirubin Total 2.4 mg/dL (0.0-1.0); Blood Urea Nitrogen 11 mg/dL (9-16); Calcium 9.6 mg/dL (8.4-10.2); Carbon Dioxide 26 mmol/L (22-29); Chloride 106 mmol/L (96-108); Creatinine Clr Calc Pharmacy 66.2; Estimated Glomerular Filt Rate > 60; Glucose Random 130 mg/dL (60-115); Lipase 26 U/L (8-78); Sodium 142 mmol/L (135-145)
[2024-05-22 06:37] VITALS: BP 123/73; PULSE 52; RESP 16; TEMP 36.6; O2SAT 96
[2024-05-22 06:46] LABS: Appearance Urine Clear; Color Urine Yellow; Glucose Urine UA Negative (Negative); Leukocyte Esterase Urine Negative (Negative); Nitrite Urine Negative (Negative); Urine Blood Negative (Negative); Urine Ketones Negative (Negative); Urine Protein Trace mg/dL (Neg-Trace)
[2024-05-22 07:18] VITALS: BP 128/76; PULSE 49; RESP 17; TEMP 36.4; O2SAT 98
[2024-05-22] MEDS: metroNIDAZOLE 500 MG TABLET PO (07:23)
[2024-05-22] MEDS: levoFLOXacin 500 MG TABLET PO (07:23)
[2024-05-22 07:28] VITALS: BP 128/76; PULSE 49; RESP 17; TEMP 36.4; O2SAT 98
== END 2024-05-22 07:30 | disposition home or self-care (01) ==
PROVIDERS: Emergency Provider Emergency Medicine; PCP Internal Medicine
DX: K57.32 Diverticulitis of large intestine without perforation or abscess without bleeding (principal); R10.32 Left lower quadrant pain; Z79.899 Other long term (current) drug therapy
CPT/HCPCS: 36415; 80048; 80076; 81003; 83690; 85025; 99283

== ENCOUNTER 2024-06-23 10:11 | Outpatient (REF) | payer MEDICARE, OTHER, SELFPAY | END 2024-06-23 10:12 | disposition home or self-care (01) | LOC: HO.LAB 10:11 | PROVIDERS: PCP Internal Medicine; Visit Provider Urology | DX: N40.1 Benign prostatic hyperplasia with lower urinary tract symptoms (principal); N13.8 Other obstructive and reflux uropathy; Z12.5 Encounter for screening for malignant neoplasm of prostate | CPT/HCPCS: 36415; 84153 ==

== ENCOUNTER 2024-06-29 08:19 | Outpatient (AMB) | payer MEDICARE, OTHER, SELFPAY ==
--- NOTE | 2024-06-29 08:32 | A.OFFVIS_ITS ---
Intake Visit Reasons: 7M Follow Up-PSA(set) Intake Note: Patient presents today for a 7 month follow up PSA Meds- None Allergies to Antibiotic- No Known Allergies Blood Thinner- None Potter Or Ceramic Artist Required: No Accompanied by: Self / Same As Patient Allergies Seasonal Allergies Allergy (Mild, Verified 06/29/24 08:32) Itchy Eyes HPI Comments Details: Víctor NINO is a very pleasant male. He is a patient of Dr Boss. He is seen in the office today for the following urologic conditions. - lower urinary tract symptoms Six month follow-up PSA 12/20 3.9, 12/21 4.4 - no medications, 06/20 3.6 PVR 45 Adequate urinary performance, effective storage, complete emptying, sufficient stream Has noted occasional debris in urine Office cystoscopy Lower Urinary Tract Symptoms: Prior treatments include 06/15 , laser procedure Prostate Symptom Score 03/16 , Moderate (9-19), Bother 3 12/17 , Mild (0-8), Bother 2. Symptoms include 03/16 , incomplete emptying, weak stream, intermittency, nocturia (>2), and are progressing. Results from testing include cystoscopy Trilobar hypertrophy 03/16 renal/bladder us Yes date 03/23/2019 PVR 90 prostate size 90 Prostate volume 30-50gm. - PSA 12/17 2.9, 12/19 3.5, 12/20 3.8 Testing at next visit will include bladder scan. [facility] Medical History Bronchitis BPH (benign prostatic hyperplasia) Diverticulitis Diverticulosis History of kidney stones Surgical History H/O colonoscopy Hx of transurethral resection of prostate Hx of arthroscopic knee surgery History of surgery Family History Father History of lung cancer Social History Are you a primary senior resident care director to a significant other at home: No Do you presently have visiting nurse or other home services: No Alcohol intake: never Patient Tobacco Use Status: Former Tobacco user Tobacco use type: Cigarette Years Smoked: 18 Use of substances other than those prescribed or required for medical reasons: No Spiritual Healthcare Practices: none Jainism Healthcare Practices: none Cultural Healthcare Practices: none Are you DNR?: No Advance Directives: No (-primary contact) Advance Directives Information Provided: Yes (as above noted) Advance Directives on File: No Recently lost weight without trying: No Eating poorly because of decreased appetite: No Nutrition Risks: No Nutritional Risk Poor oral hygiene: No service: No Current occupational status: employed Review of Systems Const Denies chills and Denies fever(s) Card Reports no additional complaints and Denies syncope Resp Denies cough GI Denies abdominal pain and Denies heartburn Reports as per HPI and Denies change in libido Neuro Denies syncope Psych Denies change in libido Endo Denies change in libido Physical Exam Const General: cooperative, healthy appearing, comfortable and no acute distress Orientation/consciousness: patient oriented x3 HEENT Face and sinus: Yes normal facial exam Mouth: moist mucous membranes Neck Neck: Yes normal visual inspection, Yes full ROM and Yes trachea midline Chest Chest palpation & inspection: normal inspection of the chest Resp Effort & Inspection: normal respiratory effort, able to speak in complete sentences and no respiratory distress GI Inspection: Yes normal to inspection Back/Spine/Pelvis Cervical Spine: normal cervical lordosis Thoracic/Lumbar Spine: thoracic and lumbar spine normal to inspection Skin General skin exam: no rashes or lesions noted Neuro General: patient oriented x3, gait normal, tone normal and moves all extremities Extrem General: Yes normal to inspection and Yes capillary refill normal Results AMB Urinalysis, Automated UA Leukoctes 0 Adiel/uL Last Edit by GUILLERMO Calabrese on 06/29/24 08:58 UA Nitrite Negative Last Edit by GUILLERMO Calabrese on 06/29/24 08:58 UA Urobilinogen 0.2 mg/dL Last Edit by GUILLERMO Calabrese on 06/29/24 08:5 8 UA Protein 0 mg/dL Last Edit by GUILLERMO Calabrese on 06/29/24 08:58 UA pH 6.0 Last Edit by GUILLERMO Calabrese on 06/29/24 08:58 UA Blood 0 Da/uL Last Edit by GUILLERMO Calabrese on 06/29/24 08:58 UA Specific [place] 1.010 Last Edit by GUILLERMO Calabrese on 06/29/24 08: 58 UA Ketone Negative Last Edit by GUILLERMO Calabrese on 06/29/24 08:58 UA Bilirubin 0 mg/dL Last Edit by Melissa Ratliff RMA on 06/29/24 08:58 UA Glucose 0 mg/dL Last Edit by GUILLERMO Calabrese on 06/29/24 08:58 Results Reviewed Results Reviewed: Laboratory Last Values Urine pH (Auto) 6.0 06/29/24 08:56 Specific [place] (Auto) 1.010 06/29/24 08:56 Urine Protein (Auto) 0 mg/dL 06/29/24 08:56 Glucose (UA)(Auto) 0 mg/dL 06/29/24 08:56 Urine Ketones (Auto) Negative 06/29/24 08:56 Urine Blood (Auto) 0 Da/uL 06/29/24 08:56 Urine Nitrite (Auto) Negative 06/29/24 08:56 Urine Bilirubin (Auto) 0 mg/dL 06/29/24 08:56 Urine Urobilinogen (Auto) 0.2 mg/dL 06/29/24 08:56 Leukocyte Esterase (Auto) 0 Adiel/uL 06/29/24 08:56 Assessment & Plan Assessment & Plan (1) Bladder mass: Comment: Protrusion from prostate Code(s): N32.89 - Other specified disorders of bladder Category: Medical (2) Weak urinary stream: Code(s): R39.12 - Poor urinary stream Category: Medical (3) BPH w urinary obs/LUTS: Code(s): N40.1 - Benign prostatic hyperplasia with lower urinary tract symptoms; N13.8 - Other obstructive and reflux uropathy Category: Medical Plan Office cysto Orders: Orders AMB Urinalysis Automated 06/29/24 Z13.9 - Encounter for screening, unspecified, N32.89 - Other specified disorders of bladder Urine Cytology 06/29/24 N32.89 - Other specified disorders of bladder Patient Instructions: Imaging studies, laboratory and physical exam results were discussed and reviewed in detail. No major barriers to patient understanding were identified. An opportunity to ask questions regarding the treatment plan was provided. All questions were answered. The patient expressed understanding and agreement with the above treatment plan. The patient is aware they should contact our office by phone for worsening of their current condition or the appearance of new urologic symptoms. Compliance is encouraged with any medications and followup testing that is ordered. It is a privilege to participate in the urologic care of your patient. If you have any questions or concerns regarding treatment for the above conditions, or other urologic issues, please do not hesitate to contact me. The office telephone contact is [phone]. This note is constructed using voice recognition software. While every effort has been made to ensure accuracy executive advisor errors may have been included. Yours sincerely, Dr Miguel Tsai MD, [facility] - Urology Providers of Expert, Compassionate Care for the Genitourinary System Coding Level of Care Code Est Pt Level 3 (59675) Diagnoses Bladder mass N32.89 Weak urinary stream R39.12 BPH w urinary obs/LUTS N40.1; N13.8
== END 2024-06-29 08:55 | disposition home or self-care (01) ==
PROVIDERS: PCP Internal Medicine; Visit Provider Urology
DX: N32.89 Other specified disorders of bladder (principal); N40.1 Benign prostatic hyperplasia with lower urinary tract symptoms; R39.12 Poor urinary stream; N13.8 Other obstructive and reflux uropathy
CPT/HCPCS: 99213

== ENCOUNTER 2024-06-29 08:19 | Outpatient (REF) | payer MEDICARE, OTHER, SELFPAY ==
[2024-06-29 18:42] LABS: Urine Cytology See Pathology rpt
== END 2024-06-29 08:20 | disposition home or self-care (01) ==
LOC: HO.LAB 08:19
PROVIDERS: PCP Internal Medicine; Visit Provider Urology
DX: N32.89 Other specified disorders of bladder (principal)
CPT/HCPCS: 81003; 88112; 99212

== ENCOUNTER 2024-08-20 07:57 | Day surgery (SDC) | payer MEDICARE, OTHER, SELFPAY ==
[2024-08-13 15:27] VITALS: BMI 30.6
[2024-08-14 13:51] VITALS: BMI 30.6
--- NOTE | 2024-08-16 14:29 | HO.ANESPROP2 ---
Documented by User: Kaykay Cook NP 08/16/24 14:30 HPI - Anesthesia Eval Consult details Narrative: 73yo M for Left Cataract Extraction IOL Insertion No previous cataract on record PMFSH Active Problems Active Problems: All Active Problems Bladder mass (Acute) Shingles (Acute) Weak urinary stream (Acute) BPH w urinary obs/LUTS (Acute) Scalp laceration (Acute) Past Medical History Medical History Bronchitis BPH (benign prostatic hyperplasia) Diverticulitis Diverticulosis History of kidney stones Family History Family History Father History of lung cancer Surgical History Surgical History H/O colonoscopy Hx of transurethral resection of prostate Hx of arthroscopic knee surgery History of surgery Social History Social History Are you a primary behavioral health care coordinator to a significant other at home: No Do you presently have visiting nurse or other home services: No Alcohol intake: never Patient Tobacco Use Status: Former Tobacco user Tobacco use type: Cigarette Years Smoked: 18 Use of substances other than those prescribed or required for medical reasons: No Have you been hit, kicked, punched, or otherwise hurt by someone within the past year? If so, by whom?: No Spiritual Healthcare Practices: none Latter Day Healthcare Practices: none Cultural Healthcare Practices: none Are you DNR?: No Advance Directives: No (-primary contact) Advance Directives Information Provided: Yes (as above noted) Advance Directives on File: No Recently lost weight without trying: No Eating poorly because of decreased appetite: No Nutrition Risks: No Nutritional Risk Poor oral hygiene: No service: No Current occupational status: employed Meds Allergies Allergy/AdvReac Type Severity Reaction Status Date / Time Seasonal Allergies Allergy Mild Itchy Eyes Verified 06/29/24 08:32 Home Medications ?Medication ?Instructions ?Recorded ?Confirmed ?Last Taken ?Type No Known Home Meds 06/29/24 08/14/24 Unknown History Exam Height,Weight and Vital Signs: Height 5 ft 9 in Weight 93.894 kg Assessment and Plan Assessment Anesthesia Assessment: Chart Reviewed Documented by User: Gris Elliott MD 08/20/24 09:32 [facility] Past Medical History Medical History Bronchitis BPH (benign prostatic hyperplasia) Diverticulitis Diverticulosis History of kidney stones Family History Family History Father History of lung cancer Surgical History Surgical History H/O colonoscopy Hx of transurethral resection of prostate Hx of arthroscopic knee surgery History of surgery History of Problems with Anesthesia: No Social History Social History Are you a primary behavioral health care coordinator to a significant other at home: No Do you presently have visiting nurse or other home services: No Alcohol intake: never Patient Tobacco Use Status: Former Tobacco user Tobacco use type: Cigarette Years Smoked: 18 Use of substances other than those prescribed or required for medical reasons: No Have you been hit, kicked, punched, or otherwise hurt by someone within the past year? If so, by whom?: No Spiritual Healthcare Practices: none Latter Day Healthcare Practices: none Cultural Healthcare Practices: none Are you DNR?: No Advance Directives: No (-primary contact) Advance Directives Information Provided: Yes (as above noted) Advance Directives on File: No Recently lost weight without trying: No Eating poorly because of decreased appetite: No Nutrition Risks: No Nutritional Risk Poor oral hygiene: No service: No Current occupational status: employed Meds Allergies Allergy/AdvReac Type Severity Reaction Status Date / Time Seasonal Allergies Allergy Mild Itchy Eyes Verified 06/29/24 08:32 Home Medications ?Medication ?Instructions ?Recorded ?Confirmed ?Last Taken ?Type No Known Home Meds 06/29/24 08/14/24 Unknown History Assessment and Plan Assessment Anesthesia Assessment: Anesthesia Plan Discussed Final Anesthetic Review History of Problems with Anesthesia: No NPO: Yes ASA Class: II Final Preanesthetic Review: Meds/Allgs Chart Reviewed, Consent Obtained/Reviewed and Anes Risks/Benef Reviewed Patient Risk: Low Procedure Risk: Low Anesthetic Plan Anesthetic Plan: MAC: Disposition: Standard PACU
[2024-08-20 08:47] VITALS: BP 151/80; PULSE 50; RESP 15; TEMP 36.3; O2SAT 98
[2024-08-20] MEDS: Tetracaine HCl/PF 0.5% Oph Sol 4 ML DROPS 1 DROP EYE-LEFT (08:53)
[2024-08-20] MEDS: Lactated Ringers 500 ML 50 ML IV (08:53)
[2024-08-20] MEDS: Cyclopentolate 1 % Ophth Sol 2 ML DRPBTL 1 DROP EYE-LEFT ×3 (08:54→08:59)
[2024-08-20] MEDS: Tropicamide 1 % Ophth Sol 3 ML BTL 1 DROP EYE-LEFT ×3 (08:55→08:59)
[2024-08-20] MEDS: Ketorolac Tromethamine 0.5% Op 10 ML DROPS 1 DROP EYE-LEFT ×3 (08:55→09:00)
[2024-08-20] MEDS: Phenylephrine HCL 2.5% Oph SoL 2 ML BOTTLE 1 DROP EYE-LEFT ×3 (08:56→09:01)
--- NOTE | 2024-08-20 09:16 | MHC.SHP ---
Pre-Procedural Eval Section A - 24 Hr Update-Section A only Date of Service: 08/20/24 The patient is an INPATIENT: No Changes since office visit: No Cold of Flu in the past 2 weeks, No New Medical Problems, No Changes in Medication and No Patient answered all questions The patient has been examined within 24 hours of the surgical procedure. The History & Physical has been completed within 30 days and I have reviewed it.: Yes Section B - Complete if H&P > 30 days Chief Complaint: Age-related nuclear cataract, left eye Allergies: Allergies Allergy/AdvReac Type Severity Reaction Status Date / Time Seasonal Allergies Allergy Mild Itchy Eyes Verified 06/29/24 08:32 Plan Diagnosis/Plan: Unchanged I have reviewed the history and physical and performed a pertinent physical examination on my patient. No changes have occurred unless specified. Time Spent With Patient Time: Total time managing care of this patient today ____ minutes.
--- NOTE | 2024-08-20 09:17 | HO.PNOPHT ---
Ophthalmology Procedure Procedure Date of Service: 08/20/24 Ophthalmology Viscoelastic: Healon Duet Dual Pack Pro Ophthalmology Lenses: IOL Acrysof MP - MA60AC (22) Procedure Notes: PREOPERATIVE DIAGNOSIS: Decreased visual acuity left eye secondary to cataract POSTOPERATIVE DIAGNOSIS: Same PROCEDURE: Left cataract extraction with intraocular lens insertion SURGEON: Tr Bryant M.D. ANESTHESIA: Topical/MAC ESTIMATED BLOOD LOSS: None COMPLICATIONS: None After obtaining informed consent, the patient was brought to the operation room suite and placed in the supine position. After adequate sedation per anesthesia, topical drops of Tetracaine were given to the left eye. The eye was then prepped and draped in the usual sterile fashion. The operating room microscope was then positioned over the operative eye and a lid speculum placed. A paracentesis was created. Viscoelastic was then instilled into the anterior chamber. A three plane incision was then created temporally, utilizing a 2.85 mm keratome. Capsulotomy forceps were then utilized to create a circular tear capsulotomy. Hydrodissection and hydrodelineation were carried out until adequate mobilization of the nucleus occurred. Phacoemulsification was then utilized to remove the dense central nucleus followed by removal of the cortical material utilizing the automated aspiration irrigation unit. Viscoat elastic was instilled into the posterior capsular bag followed by placement of a posterior chamber intraocular lens without difficulty. The residual Viscoat elastic was then removed utilizing the automated IA machine. The wound was check and found to be watertight. The patient tolerated the procedure well and the lid speculum was removed. Intracameral injection of Vigamox 0.1 mL followed by a subtenon injection of Kenalog-40 0.2 mL were administered. The patient will be seen in the a.m.
[2024-08-20 10:25] VITALS: BP 146/92; PULSE 59; RESP 17; TEMP 36.5; O2SAT 99
== END 2024-08-20 10:33 | disposition home or self-care (01) ==
PROVIDERS: PCP Internal Medicine; Visit Provider Ophthalmology
PROC: (CPT 66985; principal; 2024-08-20 10:00)
DX: H25.12 Age-related nuclear cataract, left eye (principal); H52.4 Presbyopia; H43.393 Other vitreous opacities, bilateral; H18.413 Arcus senilis, bilateral; J30.2 Other seasonal allergic rhinitis; Z87.442 Personal history of urinary calculi; Z87.891 Personal history of nicotine dependence
CPT/HCPCS: 66984; J2250; J3301; V2630

== ENCOUNTER 2024-09-03 07:34 | Day surgery (SDC) | payer MEDICARE, OTHER, SELFPAY ==
[2024-08-14 13:54] VITALS: BMI 30.6
--- NOTE | 2024-08-30 14:24 | HO.ANESPROP2 ---
Documented by User: Kaykay Cook NP 08/30/24 14:24 HPI - Anesthesia Eval Consult details Narrative: 73yo M for Right Cataract Extraction IOL Insertion Left eye 07/2024: Midaz 2 PMFSH Active Problems Active Problems: All Active Problems Bladder mass (Acute) Shingles (Acute) Weak urinary stream (Acute) BPH w urinary obs/LUTS (Acute) Scalp laceration (Acute) Past Medical History Medical History Bronchitis BPH (benign prostatic hyperplasia) Diverticulitis Diverticulosis History of kidney stones Family History Family History Father History of lung cancer Surgical History Surgical History H/O colonoscopy Hx of transurethral resection of prostate Hx of arthroscopic knee surgery History of surgery History of Problems with Anesthesia: No Social History Social History Are you a primary before and after school daycare worker to a significant other at home: No Do you presently have visiting nurse or other home services: No Alcohol intake: never Patient Tobacco Use Status: Former Tobacco user Tobacco use type: Cigarette Years Smoked: 18 Use of substances other than those prescribed or required for medical reasons: No Spiritual Healthcare Practices: none Latter-Day Healthcare Practices: none Cultural Healthcare Practices: none Are you DNR?: No Advance Directives: No (-primary contact) Advance Directives Information Provided: Yes (as above noted) Advance Directives on File: No Recently lost weight without trying: No Eating poorly because of decreased appetite: No Nutrition Risks: No Nutritional Risk Poor oral hygiene: No service: No Current occupational status: employed Meds Allergies Allergy/AdvReac Type Severity Reaction Status Date / Time Seasonal Allergies Allergy Mild Itchy Eyes Verified 06/29/24 08:32 Home Medications ?Medication ?Instructions ?Recorded ?Confirmed ?Last Taken ?Type No Known Home Meds 06/29/24 08/14/24 Unknown History Exam Height,Weight and Vital Signs: Height 5 ft 9 in Weight 93.894 kg Assessment and Plan Assessment Anesthesia Assessment: Chart Reviewed Final Anesthetic Review History of Problems with Anesthesia: No Documented by User: Ml Bauer MD 09/03/24 10:55 PMFSH Past Medical History Medical History Bronchitis BPH (benign prostatic hyperplasia) Diverticulitis Diverticulosis History of kidney stones Family History Family History Father History of lung cancer Family history of problems with anesthesia: No Surgical History Surgical History H/O colonoscopy Hx of transurethral resection of prostate Hx of arthroscopic knee surgery History of surgery Social History Social History Are you a primary before and after school daycare worker to a significant other at home: No Do you presently have visiting nurse or other home services: No Alcohol intake: never Patient Tobacco Use Status: Former Tobacco user Tobacco use type: Cigarette Years Smoked: 18 Use of substances other than those prescribed or required for medical reasons: No Spiritual Healthcare Practices: none Latter-Day Healthcare Practices: none Cultural Healthcare Practices: none Are you DNR?: No Advance Directives: No (-primary contact) Advance Directives Information Provided: Yes (as above noted) Advance Directives on File: No Recently lost weight without trying: No Eating poorly because of decreased appetite: No Nutrition Risks: No Nutritional Risk Poor oral hygiene: No service: No Current occupational status: employed Meds Allergies Allergy/AdvReac Type Severity Reaction Status Date / Time Seasonal Allergies Allergy Mild Itchy Eyes Verified 06/29/24 08:32 Home Medications ?Medication ?Instructions ?Recorded ?Confirmed ?Last Taken ?Type No Known Home Meds 06/29/24 08/14/24 Unknown History Exam Airway Mallampati Class: II TM Dist: >3cm Neck ROM: Full Heart: rrr Lungs: cta Assessment and Plan Assessment Anesthesia Assessment: Anesthesia Plan Discussed Final Anesthetic Review Family History of Problems with Anesthesia: No NPO: Yes ASA Class: II Final Preanesthetic Review: No Changes in Pt Med Stat, Meds/Allgs Chart Reviewed and Consent Obtained/Reviewed Patient Risk: Low Procedure Risk: Low Anesthetic Plan Anesthetic Plan: MAC: Disposition: Standard PACU
[2024-09-03 08:35] VITALS: BP 130/78; PULSE 58; RESP 18; TEMP 36.9; O2SAT 97; BMI 30.7
[2024-09-03] MEDS: Cyclopentolate 1 % Ophth Sol 2 ML DRPBTL 1 DROP EYE-RIGHT ×3 (08:46→08:50)
[2024-09-03] MEDS: Tetracaine HCl/PF 0.5% Oph Sol 4 ML DROPS 1 DROP EYE-RIGHT (08:46)
[2024-09-03] MEDS: Lactated Ringers 500 ML 50 ML IV (08:46)
[2024-09-03] MEDS: Ketorolac Tromethamine 0.5% Op 10 ML DROPS 1 DROP EYE-RIGHT ×3 (08:47→08:49)
[2024-09-03] MEDS: Phenylephrine HCL 2.5% Oph SoL 2 ML BOTTLE 1 DROP EYE-RIGHT ×3 (08:47→08:49)
[2024-09-03] MEDS: Tropicamide 1 % Ophth Sol 3 ML BTL 1 DROP EYE-RIGHT ×3 (08:47→08:50)
--- NOTE | 2024-09-03 10:17 | MHC.SHP ---
Pre-Procedural Eval Section A - 24 Hr Update-Section A only Date of Service: 09/03/24 The patient is an INPATIENT: No Changes since office visit: No Cold of Flu in the past 2 weeks, No New Medical Problems, No Changes in Medication and No Patient answered all questions The patient has been examined within 24 hours of the surgical procedure. The History & Physical has been completed within 30 days and I have reviewed it.: Yes Section B - Complete if H&P > 30 days Chief Complaint: Age-related nuclear cataract, right eye Allergies: Allergies Allergy/AdvReac Type Severity Reaction Status Date / Time Seasonal Allergies Allergy Mild Itchy Eyes Verified 06/29/24 08:32 Plan Diagnosis/Plan: Unchanged I have reviewed the history and physical and performed a pertinent physical examination on my patient. No changes have occurred unless specified. Time Spent With Patient Time: Total time managing care of this patient today ____ minutes.
--- NOTE | 2024-09-03 10:18 | P.PCNO_ITS ---
Ophthalmology Procedure Procedure Date of Service: 09/03/24 Ophthalmology Viscoelastic: Healon Duet Dual Pack Pro Ophthalmology Lenses: IOL Acrysof MP - MA60AC (21.5) Procedure Notes: PREOPERATIVE DIAGNOSIS: Decreased visual acuity right eye secondary to cataract POSTOPERATIVE DIAGNOSIS: Same PROCEDURE: Right cataract extraction with intraocular lens insertion SURGEON: Tr Bryant M.D. ANESTHESIA: Topical/MAC ESTIMATED BLOOD LOSS: None COMPLICATIONS: None After obtaining informed consent, the patient was brought to the operating room suite and placed in the supine position. After adequate sedation per anesthesia, topical drops of Tetracaine were given to the right eye. The eye was then prepped and draped in the usual sterile fashion. The operating room microscope was then positioned over the operative eye and a lid speculum placed. A paracentesis was created. Viscoelastic was then instilled into the anterior chamber. A three plane incision was then created temporally, utilizing a 2.85 mm keratome. Capsulotomy forceps were then utilized to create a circular tear capsulotomy. Hydrodissection and hydrodelineation were carried out until adequate mobilization of the nucleus occurred. Phacoemulsification was then utilized to remove the dense central nu cleus followed by removal of the cortical material utilizing the automated aspiration irrigation unit. Viscoelastic was instilled into the posterior capsular bag followed by placement of a posterior chamber intraocular lens without difficulty. The residual Viscoelastic was then removed utilizing the automated IA machine. The wound was checked and found to be watertight. The patient tolerated the procedure well and the lid speculum was removed. Intracameral injection of Vigamox 0.1 mL followed by a subtenon injection of Kenalog-40 0.2 mL were administered. The patient will be seen in the a.m.
[2024-09-03 10:49] VITALS: BP 167/91; PULSE 59; RESP 16; TEMP 36.1; O2SAT 100
== END 2024-09-03 10:51 | disposition home or self-care (01) ==
PROVIDERS: PCP Internal Medicine; Visit Provider Ophthalmology
PROC: (CPT 66985; principal; 2024-09-03 10:00)
DX: H25.11 Age-related nuclear cataract, right eye (principal); H52.4 Presbyopia; H18.413 Arcus senilis, bilateral; H43.393 Other vitreous opacities, bilateral; Z87.891 Personal history of nicotine dependence; Z98.890 Other specified postprocedural states
CPT/HCPCS: 66984; J3301; V2630

== ENCOUNTER 2024-10-24 14:55 | Outpatient (AMB) | payer MEDICARE, OTHER, SELFPAY ==
--- NOTE | 2024-10-24 11:28 | A.OFFVIS_ITS ---
Intake Visit Reasons: cysto(Bladder Mass) Intake Note: Patient is Present for Cystoscopy Urology Med: None Antibiotic Allergy: None Blood Thinner: None URO- G Disposable Cystoscope lot: [id number] exp:03/08/2027 Brake Rider Required: No Allergies Seasonal Allergies Allergy (Mild, Verified 10/24/24 11:29) Itchy Eyes HPI Comments Details: Víctor NINO is a very pleasant male. He is a patient of Dr Boss. He is seen in the office today for the following urologic conditions. - lower urinary tract symptoms Office cystoscopy shows - bladder stone - anterior prostate tissue Recommend holmium laser bladder stone and laser procedure of anterior prostate tissue Lower Urinary Tract Symptoms: Prior treatments include 06/15 , laser procedure Prostate Symptom Score 03/16 , Moderate (9-19), Bother 3 12/17 , Mild (0-8), Bother 2. Symptoms include 03/16 , incomplete emptying, weak stream, intermittency, nocturia (>2), and are progressing. Results from testing include cystoscopy Trilobar hypertrophy 03/16 renal/bladder us Yes date 03/23/2019 PVR 90 prostate size 90 Prostate volume 30-50gm. - PSA 12/17 2.9, 12/19 3.5, 12/20 3.8 Testing at next visit will include bladder scan. [facility] Medical History Bronchitis BPH (benign prostatic hyperplasia) Diverticulitis Diverticulosis History of kidney stones Surgical History H/O colonoscopy Hx of transurethral resection of prostate Hx of arthroscopic knee surgery History of surgery Family History Father History of lung cancer Social History Are you a primary acute care registered nurse to a significant other at home: No Do you presently have visiting nurse or other home services: No Alcohol intake: never Patient Tobacco Use Status: Former Tobacco user Tobacco use type: Cigarette Years Smoked: 19 service: No Current occupational status: employed Review of Systems Const Denies chills and Denies fever(s) Card Reports no additional complaints and Denies syncope Resp Denies cough GI Denies abdominal pain and Denies heartburn Reports as per HPI and Denies change in libido Neuro Denies syncope Psych Denies change in libido Endo Denies change in libido Physical Exam Const General: cooperative, healthy appearing, comfortable and no acute distress Orientation/consciousness: patient oriented x3 HEENT Face and sinus: Yes normal facial exam Mouth: moist mucous membranes Neck Neck: Yes normal visual inspection, Yes full ROM and Yes trachea midline Chest Chest palpation & inspection: normal inspection of the chest Resp Effort & Inspection: normal respiratory effort, able to speak in complete sentences and no respiratory distress GI Inspection: Yes normal to inspection Back/Spine/Pelvis Cervical Spine: normal cervical lordosis Thoracic/Lumbar Spine: thoracic and lumbar spine normal to inspection Skin General skin exam: no rashes or lesions noted Neuro General: patient oriented x3, gait normal, tone normal and moves all extremities Extrem General: Yes normal to inspection and Yes capillary refill normal Office Procedures Cystoscopy Consent Discussed risk and benefit or proposed procedure with the patient. Information consent for procedure given to the patient. Discussed technical aspects, risks, benefits and alternatives in full. Addressed all of the patient's questions and concerns regarding the procedure. The patient demonstrated knowledge and understanding. They wish to proceed with this procedure. Preparation The patient was prepped in the usual manner. A teamcenter consultant was present and in the room. Genitalia was prepped with betadine solution in a sterile manner. Lidocaine Jelly 2% was placed into the urethra and 16Fr flexible Olympus cystoscope was inserted into the meatus after adequate lubrication. Procedure Cystoscopy performed using a disposable Urovue digital 16 Singaporean cystoscope. 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 Administered by: Miguel Tsai MD on 10/24/24 15:50 Dose Route Admin Location Dispensed Lot Number Expiration Date [facility] Corporate Human Resources Manager 10 mL intra-urethral 10 mL Results AMB Urinalysis, Automated UA Leukoctes 0 Adiel/uL Last Edit by Eduarda Clemente [facility] on 10/24/24 15:18 UA Nitrite Negative Last Edit by Eduarda Clemente [facility] on 10/24/24 15:18 UA Urobilinogen 0.2 mg/dL Last Edit by Eduarda Clemente [facility] on 10/24/24 15:1 8 UA Protein 15 mg/dL Last Edit by Eduarda Clemente [facility] on 10/24/24 15:18 UA pH 5.5 Last Edit by Eduarda Clemente [facility] on 10/24/24 15:18 UA Blood 0 Da/uL Last Edit by Eduarda Clemente [facility] on 10/24/24 15:18 UA Specific [place] 1.030 Last Edit by Eduarda Clemente [facility] on 10/24/24 15: 18 UA Ketone Negative Last Edit by Eduarda Clemente [facility] on 10/24/24 15:18 UA Bilirubin 0 mg/dL Last Edit by Eduarda Clemente [facility] on 10/24/24 15:18 UA Glucose 0 mg/dL Last Edit by Eduarda Clemente [facility] on 10/24/24 15:18 Results Reviewed Results Reviewed: Laboratory Last Values Urine pH (Auto) 5.5 10/24/24 15:14 Specific [place] (Auto) 1.030 10/24/24 15:14 Urine Protein (Auto) 15 mg/dL 10/24/24 15:14 Glucose (UA)(Auto) 0 mg/dL 10/24/24 15:14 Urine Ketones (Auto) Negative 10/24/24 15:14 Urine Blood (Auto) 0 Da/uL 10/24/24 15:14 Urine Nitrite (Auto) Negative 10/24/24 15:14 Urine Bilirubin (Auto) 0 mg/dL 10/24/24 15:14 Urine Urobilinogen (Auto) 0.2 mg/dL 10/24/24 15:14 Leukocyte Esterase (Auto) 0 Adiel/uL 10/24/24 15:14 Assessment & Plan Assessment & Plan (1) Bladder stones: Code(s): N21.0 - Calculus in bladder Category: Medical Plan Risks, benefits and alternatives to therapy were discussed. These include but are not limited to infection, bleeding, damage to local organs and tissues, need for further interventions. Anesthetic risks regarding cardiac arrhythmia, blood clots, and potential mortality were discussed. The patient understands the typical recovery time and the outpatient nature of the procedure. After consideration of these risks the patient gives full informed consent and they wish to move ahead with the procedure. Holmium laser bladder stone, GreenLight laser anterior tissue prostate Orders: Orders AMB Cystoscopy Today N21.0 - Calculus in bladder AMB Urinalysis Automated Today Z13.9 - Encounter for screening, unspecified Medications: New lidocaine HCl 2% 10 mL intra-urethral ONCE 10 mL 0RF N21.0 - Calculus in bladder Patient Instructions: Imaging studies, laboratory and physical exam results were discussed and reviewed in detail. No major barriers to patient understanding were identified. An opportunity to ask questions regarding the treatment plan was provided. All questions were answered. The patient expressed understanding and agreement with the above treatment plan. The patient is aware they should contact our office by phone for worsening of their current condition or the appearance of new urologic symptoms. Compliance is encouraged with any medications and followup testing that is ordered. It is a privilege to participate in the urologic care of your patient. If you have any questions or concerns regarding treatment for the above conditions, or other urologic issues, please do not hesitate to contact me. The office telephone contact is [phone]. This note is constructed using voice recognition software. While every effort has been made to ensure accuracy brewery cellar worker errors may have been included. Yours sincerely, Dr Miguel Tsai MD, [facility] - Urology Providers of Expert, Compassionate Care for the Genitourinary System Coding Level of Care Code Est Pt Level 4 (89006) Diagnoses Bladder stones N21.0 CPT Codes Cystoscopy - CPT: 26374-[id number] ([id number])
== END 2024-10-24 15:56 | disposition home or self-care (01) ==
PROVIDERS: PCP Internal Medicine; Visit Provider Urology
DX: N21.0 Calculus in bladder (principal); Z13.9 Encounter for screening, unspecified
CPT/HCPCS: 52000; 99214

== ENCOUNTER → 2024-10-24 14:55 | Outpatient (BNVA) | payer MEDICARE, OTHER, SELFPAY | PROVIDERS: PCP Internal Medicine; Visit Provider Urology | DX: N21.0 Calculus in bladder (principal) | CPT/HCPCS: 52000; 81003; 99212 ==

== ENCOUNTER 2024-12-10 05:46 | Day surgery (SDC) | payer MEDICARE, OTHER, SELFPAY ==
--- OUTSIDE RECORDS SUMMARY | 2024-11-12 12:26 | XMS_ITS ---
Author Organization Jase Boss DO [facility] Address [address], [place] [id number] Care Team Providers Care Tire Layer Name Role Phone ANJELMAURICIO NICOLAS Primary Care Provider Jase Ge Unavailable [phone] Jase Boss DO Unavailable ALLERGIES No Known Allergies REASON FOR VISIT Preop, cataracts SOCIAL HISTORY Tobacco Use: Social History Observation Description Date Details (start date - stop date) Former Smoker NA - NA Sex Assigned At : Social History Observation Description Sex Assigned At Unknown Tobacco Use/Smoking Question Answer Notes Patient is a former smoker How long has it been since y ou last smoked? > 10 years Additional Findings: Tobacco Non-User Fo rmer smoker, currently using no form of tobacco Alcohol Screen Question Answer Notes Did you have a drink contain ing alcohol in the past year? Yes How often did you have a dri nk containing alcohol in the past year? 2 to 4 times a month (2 points) How many drinks did you have on a typical day when you were drinking in the past year? 1 or 2 drinks (0 point) How often did you have 6 or more drinks on one occasion in the past year? Never (0 point) Points 2 Interpretation Negative PROBLEMS Problem Type ICD Code Onset Dates Problem Status W/U Status Risk SNOMED Code Notes Problem Cataract of both eyes, unspecified cataract type (H26.9) Active confirmed [id number] VITAL SIGNS BMI 30.57 kg/m2 08/08/2024 Blood pressure systolic 114 mm Hg 08/08/20 24 Blood pressure diastolic 68 mm Hg 024 Height 69 in 08/08/2024 Weight 207 lbs 08/08/2024 Encounters Encounter Location Date Provider Diagnosis [facility], [facility] [address] [place] [id number] 08/08/2024 Jase Boss Cataract of both eyes, unspecified cataract type H26.9 ASSESSMENTS Encounter Date Diagnosis Assessment Notes Treatment Notes Treatment Clinical Notes 08/08/2024 Cataract of both eyes, unspecified cataract type (ICD-10 - H26.9) Víctor is an acceptable candidate for the proposed surgical procedures and is medically cleared for surgery PLAN OF TREATMENT Treatment Notes Assessment Notes Cataract of both eyes, unspe cified cataract type Víctor is an acceptable candidate for th e proposed surgical procedures and is medically cleared for surgery Progress Notes * Examination Category Sub-Category Detail Notes General Examination GENERAL APPEARANCE: in no ac yocha dehe distress, well developed, well nourished HEAD: normocephalic, atrau matic HEART: no murmurs, regular rate and rhythm, S1, S2 normal LUNGS: clear to auscultatio n bilaterally ABDOMEN: normal, bowel sounds present, soft, nontender, nondistended SKIN: warm and dry EXTREMITIES: no edema PSYCH: alert, oriented, cog nitive function intact
--- OUTSIDE RECORDS SUMMARY | 2024-11-12 12:26 | XMS_ITS | Patient Health Record ---
Author Organization Jase Boss DO, [facility] Address [address] [place] [id number] Care Team Providers Care Optical Designer Name Role Phone MAURICIO HOBBS Primary Care Provider Jase Ge Unavailable [phone] Jase Boss DO Unavailable Unavailable ALLERGIES No Known Allergies RESULTS Component Value Reference Range Notes Prostate Specific Antigen Reviewed date:12/28/2023 09:26:20 AM Interpretation:Abnormal Performing Lab:[facility], [address] [place] [phone] Notes/Report: Prostate Specific Antigen 4.35 <0.05-4.0 ng/mL PSA methodology: Horowitz Alinity i Chemiluminescent Microparticle Immunoassay (CMIA) Complete Blood Count Auto Di ff Reviewed date:05/22/2024 09:18:41 AM Interpretation:Abnormal Performing Lab:[facility], [address] [place] [phone] Notes/Report: White Blood Count 5.4 4.8-10.8 X10*3/uL Red Blood Count 4.87 4.60-5.80 X10*6/uL Hemoglobin 14.1 14.0-18.0 g/dl Hematocrit 40.6 42.0-52.0 % Mean Corpuscular Volume 83.4 80.0-98.0 fL Mean Corpuscular Hemoglobin 29.0 27.0-33.0 pg Mean Corpuscular HGB Conc 34.7 31.0-36.0 g/dl Red Cell Distribution Width 13.4 11.0-16.0 % Platelet Count 167 160-400 X10*3/uL Mean Platelet Volume 9.1 9.4-12.4 fL Neutrophils Percent Auto 68.3 45-73 % Imm Gran Pct Auto 0.2 0.0-0.4 % Lymphocytes Percent Auto 19.5 20-40 % Monocytes Percent Auto 7.4 2-11 % Eosinophils Percent Auto 3.9 0-4 % Basophils Percent Auto 0.7 0-2 % NRBC Pct Auto 0.0 0.0-0.2 /100WBC Neutrophils Absolute Auto 3.7 2.0-8.3 x10*3/u L Imm Gran Abs Auto 0.01 0.00-0.03 X10*3/uL Lymphocytes Absolute Auto 1.1 1.2-4.9 X10*3/u L Monocytes Absolute Auto 0.4 0.1-1.2 X10*3/uL Eosinophils Absolute Auto 0.2 0.0-0.4 X10*3/u L Basophils Absolute Auto 0.0 0.0-0.2 X10*3/uL NRBC Abs Auto 0.000 0.0-0.012 X10*3/uL Liver Panel Reviewed date:05/22/2024 09:18:41 AM Interpretation:Abnormal Performing Lab:[address] [phone] Notes/Report: Bilirubin Total 2.4 0.0-1.0 mg/dL Bilirubin Direct 0.7 0.0-0.5 mg/dL Aspartate Amino Transferase 19 5-37 U/L Alanine Aminotransferase 24 0-40 U/L Total Protein 7.0 6.5-8.0 g/dL Albumin Level 4.2 3.5-5.0 g/dL Alkaline Phosphatase 70 39-117 U/L Basic Metabolic Panel Reviewed date:05/22/2024 09:18:41 AM Interpretation:Abnormal Performing Lab:[address] [id number] Notes/Report: Sodium 142 135-145 mmol/L Potassium 4.0 3.3-5.1 mmol/L Chloride 106 96-108 mmol/L Carbon Dioxide 26 22-29 mmol/L Anion Gap 14 12-20 Blood Urea Nitrogen 11 9-16 mg/dL Creatinine 1.18 0.5-1.4 mg/dL Creatinine Clr Calc Pharmacy 66.2 eGFR (calculated from the MDRD study equation) and eCrCl (calculated from the Cockcroft-Gault equation) are based on different parameters and may not yield comparable results. If eCrCl result is absurd, please check patient's height/weight. Estimated Glomerular Filt Rate > 60 NOTE: For -[place] individuals, multiply the result by 1.210. Chronic Kidney Disease: Estimated GFR < 60 mL/min/1.73m2 Severe Kidney Disease: Estimated GFR < 15 mL/min/1.73m2 Glucose Random 130 60-115 mg/dL Calcium 9.6 8.4-10.2 mg/dL Lipase Reviewed date:05/22/2024 09:18:41 AM Interpretation:Normal Performing Lab:[address] [phone] Notes/Report: Lipase 26 8-78 U/L UA CC w/rflx Micro + Cult Reviewed date:05/22/2024 09:18:59 AM Interpretation:Negative Performing Lab:[address] [address] Notes/Report: [id number] Urine, Clean Catch Color Urine Yellow Appearance Urine Clear PH 6.0 5.0-9.0 Glucose Urine UA Negative Negative mg/dL Urine Blood Negative Negative Specific [place] - Urine 1.010 1.005-1.025 Urine Protein Trace Neg-Trace mg/dL Urine Ketones Negative Negative mg/dL Nitrite Urine Negative Negative Leukocyte Esterase Urine Negative Negative Prostate Specific Antigen Reviewed date:06/23/2024 02:54:12 PM Interpretation:Normal Performing Lab:[address] [phone] Notes/Report: Prostate Specific Antigen 3.60 <0.05-4.0 ng/mL PSA methodology: Horowitz Alinity i Chemiluminescent Microparticle Immunoassay (CMIA) Pathology Reviewed date:07/03/2024 09:21:39 AM Interpretation:Benign Performing Lab:[address] [address] Notes/Report: REASON FOR REFERRAL No Information IMMUNIZATIONS Vaccine Route Administration Date Status Comme nts TDaP IM Intramuscular 10/05/2020 Administered Influenza Unknown 09/28/2017 Refused Pneumococcal - PPSV23 Unknown 09/28/2017 Refused Influenza Unknown 02/09/2019 Refused Influenza Unknown 08/28/2019 Refused SOCIAL HISTORY Tobacco Use: Social History Observation [...] W/U Status Risk SNOMED Code Notes Problem Renal lithiasis (N20.0) Active confirmed [id number] Problem Benign prostatic hyperplasia without lower urinary tract symptoms (N40.0) Active confirmed 289426139 Problem Vitamin D deficiency (E55.9) Active confirmed 78299107 Problem Long QT syndrome (I45.81) Active confirmed Long QT syndrome (9970446) Problem Cataract of both eyes, unspecified cataract type (H26.9) Active confirmed [id number] VITAL SIGNS Blood pressure diastolic 68 mm Hg 08/08/2024 Height 69 in 08/08/2024 Blood pressure systolic 114 mm Hg 08/08/2024 Weight 207 lbs 08/08/2024 BMI 30.57 kg/m2 08/08/2024 Encounters Encounter Location Date Provider Diagnosis [facility] Boss DO, [facility] [address] [place] [phone] 08/08/2024 Jase Boss Cataract of both eyes, unspecified cataract type H26.9 ASSESSMENTS Encounter Date Diagnosis Assessment Notes Treatment Notes Treatment Clinical Notes 08/08/2024 Cataract of both eyes, unspecified cataract type (ICD-10 - H26.9) Víctor is an acceptable candidate for the proposed surgical procedures and is medically cleared for surgery PLAN OF TREATMENT No Information Insurance Providers Payer Name Payer Address Payer Phone Subscriber Number Group Number Insured Name Patient Relationship to Insured Coverage Start Date Coverage End Date MEDICARE [address] [place] [phone] [id number] Víctor Andre Self - patient is the insured [facility] [address] [facility] [place] [phone] [id number] Víctor Andre Self - patient is the insured MEDICAL (GENERAL) HISTORY Medical History History ICD Code diverticulosis diverticulitis renal lithiasis seasonal allergies cholelithiasis Benign prostatic hyperplasia without low er urinary tract symptoms N40.0 Surgical History Surgery Date(Month/Year) right knee arthroscopy tendon repair, distal right biceps laser TURP
--- NOTE | 2024-12-06 14:27 | P.CONAN_ITS ---
Documented by User: Kaykay Cook NP 12/06/24 14:27 HPI - Anesthesia Eval Consult details Narrative: 73yo M for Laser Ablation Prostate w/Green Light, Cystoscopy Bladder Stone Laser with Holmium Laser PMFSH Active Problems Active Problems: All Active Problems Bladder stones (Acute) Bladder mass (Acute) Shingles (Acute) Weak urinary stream (Acute) BPH w urinary obs/LUTS (Acute) Scalp laceration (Acute) Past Medical History Medical History (Updated 12/10/24 @ 06:23 by Keyona Swenson RN) Cataract, bilateral Bronchitis BPH (benign prostatic hyperplasia) Diverticulitis Diverticulosis History of kidney stones Family History Family History Father History of lung cancer Family history of problems with anesthesia: No Surgical History Surgical History (Updated 12/10/24 @ 06:22 by Keyona Swenson RN) H/O colonoscopy Hx of transurethral resection of prostate Hx of arthroscopic knee surgery History of surgery History of Problems with Anesthesia: No Social History Social History Are you a primary child care associate teacher to a significant other at home: No Do you presently have visiting nurse or other home services: No Alcohol intake: never Patient Tobacco Use Status: Former Tobacco user Tobacco use type: Cigarette Years Smoked: 18 Use of substances other than those prescribed or required for medical reasons: No Are you DNR?: No Advance Directives: No Advance Directives Information Provided: Yes Nutrition Risks: No Nutritional Risk Poor oral hygiene: No service: No Current occupational status: employed Meds Allergies Allergy/AdvReac Type Severity Reaction Status Date / Time Seasonal Allergies Allergy Mild Itchy Eyes Verified 10/24/24 11:29 Home Medications ?Medication ?Instructions ?Recorded ?Confirmed ?Last Taken ?Type No Known Home Meds 06/29/24 12/10/24 Unknown History Assessment and Plan Assessment Anesthesia Assessment: Chart Reviewed Final Anesthetic Review Family History of Problems with Anesthesia: No History of Problems with Anesthesia: No Documented by User: Liam Cason MD 12/10/24 07:34 PMFSH Past Medical History Medical History (Updated 12/10/24 @ 06:23 by Keyona Swenson RN) Cataract, bilateral Bronchitis BPH (benign prostatic hyperplasia) Diverticulitis Diverticulosis History of kidney stones Family History Family History Father History of lung cancer Surgical History Surgical History (Updated 12/10/24 @ 06:22 by Keyona Swenson RN) H/O colonoscopy Hx of transurethral resection of prostate Hx of arthroscopic knee surgery History of surgery Social History Social History Are you a primary child care associate teacher to a significant other at home: No Do you presently have visiting nurse or other home services: No Alcohol intake: never Patient Tobacco Use Status: Former Tobacco user Tobacco use type: Cigarette Years Smoked: 18 Use of substances other than those prescribed or required for medical reasons: No Are you DNR?: No Advance Directives: No Advance Directives Information Provided: Yes Nutrition Risks: No Nutritional Risk Poor oral hygiene: No service: No Current occupational status: employed Meds Allergies Allergy/AdvReac Type Severity Reaction Status Date / Time Seasonal Allergies Allergy Mild Itchy Eyes Verified 10/24/24 11:29 Home Medications ?Medication ?Instructions ?Recorded ?Confirmed ?Last Taken ?Type No Known Home Meds 06/29/24 12/10/24 Unknown History Exam Airway Mallampati Class: II TM Dist: >3cm Neck ROM: Full Loose/Missing/Broken Teeth: No Heart: ok Lungs: ok Assessment and Plan Assessment Anesthesia Assessment: Anesthesia Plan Discussed Final Anesthetic Review NPO: Yes ASA Class: II Final Preanesthetic Review: No Changes in Pt Med Stat, Meds/Allgs Chart Reviewed, Consent Obtained/Reviewed and Anes Risks/Benef Reviewed Patient Risk: Low Procedure Risk: Low Anesthetic Plan Anesthetic Plan: GA and Agree w/ Assess. and Plan Disposition: Standard PACU
--- OUTSIDE RECORDS SUMMARY | 2024-12-10 05:49 | XMS_ITS | Patient Health Record ---
Author Organization Jase Boss DO, [facility] Address [address] [place] [phone] Care Team Providers Care Shareholder Name Role Phone MAURICIO HOBBS Primary Care Provider Jase Ge Unavailable [phone] Jase Boss DO Unavailable Unavailable ALLERGIES No Known Allergies RESULTS Component Value Reference Range Notes Prostate Specific Antigen Reviewed date:12/28/2023 09:26:20 AM Interpretation:Abnormal Performing Lab:[facility], [address] [place] [phone] Notes/Report: Prostate Specific Antigen 4.35 <0.05-4.0 ng/mL PSA methodology: Horowitz Alinity i Chemiluminescent Microparticle Immunoassay (CMIA) Complete Blood Count Auto Di ff Reviewed date:05/22/2024 09:18:41 AM Interpretation:Abnormal Performing Lab:[facility], [address] [place] [phone] Notes/Report: White Blood Count 5.4 4.8-10.8 X10*3/uL [...] Panel Reviewed date:05/22/2024 09:18:41 AM Interpretation:Abnormal Performing Lab:[address] [phone] Notes/Report: Bilirubin Total 2.4 0.0-1.0 mg/dL Bilirubin Direct 0.7 0.0-0.5 mg/dL Aspartate Amino Transferase 19 5-37 U/L Alanine Aminotransferase 24 0-40 U/L Total Protein 7.0 6.5-8.0 g/dL Albumin Level 4.2 3.5-5.0 g/dL Alkaline Phosphatase 70 39-117 U/L Basic Metabolic Panel Reviewed date:05/22/2024 09:18:41 AM Interpretation:Abnormal Performing Lab:[address] [phone] Notes/Report: Sodium 142 135-145 mmol/L Potassium 4.0 [...] Glomerular Filt Rate > 60 NOTE: For -[place]aced[place] individuals, multiply the result by 1.210. Chronic Kidney Disease: Estimated GFR < 60 mL/min/1.73m2 Severe Kidney Disease: Estimated GFR < 15 mL/min/1.73m2 Glucose Random 130 60-115 mg/dL Calcium 9.6 8.4-10.2 mg/dL Lipase Reviewed date:05/22/2024 09:18:41 AM Interpretation:Normal Performing Lab:[address] [phone] Notes/Report: Lipase 26 8-78 U/L UA CC w/rflx Micro + Cult Reviewed date:05/22/2024 09:18:59 AM Interpretation:Negative Performing Lab:[address] [phone] Notes/Report: [id number] Urine, Clean Catch Color Urine Yellow Appearance Urine Clear PH 6.0 5.0-9.0 Glucose Urine UA Negative Negative mg/dL Urine Blood Negative Negative Specific [place] - Urine 1.010 1.005-1.025 Urine Protein Trace Neg-Trace mg/dL Urine Ketones Negative Negative mg/dL Nitrite Urine Negative Negative Leukocyte Esterase Urine Negative Negative Prostate Specific Antigen Reviewed date:06/23/2024 02:54:12 PM Interpretation:Normal Performing Lab:[address] [phone] Notes/Report: Prostate Specific Antigen 3.60 <0.05-4.0 ng/mL PSA methodology: Horowitz Alinity i Chemiluminescent Microparticle Immunoassay (CMIA) Pathology Reviewed date:07/03/2024 09:21:39 AM Interpretation:Benign Performing Lab:[address] [phone] Notes/Report: REASON FOR REFERRAL No Information IMMUNIZATIONS [...] Notes Problem Renal lithiasis (N20.0) Active confirmed [id number] Problem Benign prostatic hyperplasia without lower urinary tract symptoms (N40.0) Active confirmed 433267235 Problem Vitamin D deficiency (E55.9) Active confirmed 42430947 Problem Long QT syndrome (I45.81) Active confirmed Long QT syndrome (0271846) Problem Cataract of both eyes, unspecified cataract type (H26.9) Active confirmed [id number] VITAL SIGNS Blood pressure diastolic 68 mm Hg 08/08/2024 Height 69 in 08/08/2024 Blood pressure systolic 114 mm Hg 08/08/2024 Weight 207 lbs 08/08/2024 BMI 30.57 kg/m2 08/08/2024 Encounters Encounter Location Date Provider Diagnosis Jase Boss DO, [facility] [address] [place] [phone] 08/08/2024 Jase Boss Cataract of both eyes, [...] Date MEDICARE [address] [place] [phone] [id number] Víctor Andre Self - patient is the insured [facility] [place] [address] [place] [address] [id number] Víctor Andre Self - patient is the insured MEDICAL (GENERAL) HISTORY Medical History History ICD Code diverticulosis diverticulitis renal lithiasis seasonal allergies cholelithiasis Benign prostatic hyperplasia without low er urinary tract symptoms N40.0 Surgical History Surgery Date(Month/Year) right knee arthroscopy tendon repair, distal right biceps laser TURP
[2024-12-10 06:23] VITALS: BMI 29.8
[2024-12-10 06:32] VITALS: BP 135/81; PULSE 59; RESP 16; TEMP 36.5; O2SAT 100
[2024-12-10] MEDS: Lactated Ringers 1,000 ML 100 ML IVCONT (06:46)
--- NOTE | 2024-12-10 07:46 | MHC.SHP ---
Pre-Procedural Eval Section A - 24 Hr Update-Section A only Date of Service: 12/10/24 The patient is an INPATIENT: No Changes since office visit: No Cold of Flu in the past 2 weeks, No New Medical Problems, No Changes in Medication and No Patient answered all questions The patient has been examined within 24 hours of the surgical procedure. The History & Physical has been completed within 30 days and I have reviewed it.: Yes Section B - Complete if H&P > 30 days Chief Complaint: Benign prostatic hyperplasia with lower urinary Details of Present Illness: Greenlight laser prostate and holmium laser bladder stone Relevant Family History (Specify if Yes): No Relevant Social History: None Present Medications: see Short Stay Collaborative assessment Medical History: No relevant PMH History of Previous Operations: Relevant previous surgery/procedure and date(s) Allergies: Allergies Allergy/AdvReac Type Severity Reaction Status Date / Time Seasonal Allergies Allergy Mild Itchy Eyes Verified 10/24/24 11:29 Review of Systems Sugical H&P ROS: Negative: Constitution, Cardiovascular, Respiratory, Neurological, Psychiatric, Hem-Onc, Allergic/Immunologic, Gastrointestinal, Genitourinary, Musculoskeletal, Integumentary, Endocrine and Eyes/Ears/Nose/Throat Exam Surgical H&P Exam: Normal: HEENT, Normal: Heart, Normal: Lungs, Normal: Extremities, Normal: Abdomen, Normal: Skin and Normal: Neurological Plan Diagnosis/Plan: Unchanged I have reviewed the history and physical and performed a pertinent physical examination on my patient. No changes have occurred unless specified. Time Spent With Patient Time: Total time managing care of this patient today ____ minutes.
--- NOTE | 2024-12-10 09:20 | W.PM.OPN ---
Operative Note Operative Note Date of Service: 12/10/24 Narrative: PreOperative Diagnosis: 1) bladder stone 2 recurrent Bladder outlet obstruction Post Operative Diagnosis: see abve Procedure: 1) holmium bladder stone 2) GreenLight Laser Enucleation of the prostate CPT 13518 Surgeon: Dr Miguel Tsai Anesthesia: General History of bladder outlet obstruction. Prior procedure proximally 4-5 years ago Developed urgency and frequency Cystoscopy in office shows 1/2 cm bladder stone with anterior prostate and lateral prostate tissue Treated with alpha-madhuri and other medications. Still with symptoms.Recommendation for prostate procedure with laser enucleation of prostate. Risks and benefits have been discussed. Focus was placed on development of retrograde ejaculation which is a normal part of this procedure. Procedure: After informed consent was verified the patient was brought to the operating room and placed in a supine position. Anesthesia was administered per protocol. Patient was placed in modified dorsal lithotomy position and prepped and draped in a sterile fashion. Safety pause time-out was confirmed. Antibiotics have been given. A Twenty-four Icelandic laser cystoscope was inserted per urethra. No abnormalities were found of the anterior and bulbar urethra. The prostatic urethra shows bilateral lateral lobe crowding. Prior median lobe removal. The bladder was examined and both ureteric orifices were seen in their normal positions away from the area of interest. Bladder trabeculation grade 2. Using a 550nm end fire holmium laser with bladder stones settings the stone was slowly broken into small pieces. The small pieces were irrigated from the bladder. This continued for approximately 15-20 minutes to break the stone Using a GreenLight laser with settings of 80 alexandre incisions were made at the 5 and 7 o'clock position. The incisions were taken down from the bladder neck down to the level of the veru. Primary focus was directed to the lateral lobes. Starting with the patient's left lateral lobe. First the 05:00 o'clock groove was further developed. This was moved in the lateral direction to undermine the tissue on the lateral side running from the bladder neck to the prostate apex. The ureteric orifice was used to guide incisions. Focus was then placed on the laser at the 1 o'clock position to developing a secondary groove down to the level of bladder fibers. The creation of a second deep groove defined a segment of intervening tissue similar to a slice of orange. At the apex of the prostate the 2 grooves were linked the us releasing the intervening tissue. This tissue was then removed with a combination of enucleation and ablation working from the apex toward the bladder neck. A similar procedure was repeated on the patient's right-hand side. The only differences being the position of the lateral groove at he 7 o'clock position and the secondary groove at the 11 o'clock position, Otherwise the procedure was developed in a mirror fashion. After the majority of tissue had been debulked remnant tissue was ablated with the side fire laser and the curve of the prostate followed up each side wall clearly defining the anterior remnant strip that remained between the 11 and 1 o'clock positions. In this case the anterior tissue protruded into the prostatic fossa and was partially ablated with the laser When this was had been completed debris and pieces of prostate were removed from the bladder with irrigation. Both ureteric orifices were reviewed again in shown to be patent in away from any areas of energy damage. The apical area was reviewed in any stray ooze was controlled. A 22 Icelandic 30 cc balloon Nascimento catheter was placed over a stylet into the bladder. Clear efflux was obtained upon irrigation with a Aron piston syringe. 50 cc was placed in the balloon and gentle traction was placed. A snap was used to hold tension on the catheter to control bleeding during patient moved and transported. A drainage bag was placed. Once transportation is complete to the PACU the snap will be removed. Dose of tranexamic acid will be given in recovery. The patient tolerated the procedure well, he was extubated in the operating and transferred in a stable condition to the recovery area. Total Power 205 kW Lasing time 31:16 Prostate tissue noted to be fibrous Pathology: Prostate tissue Bladder stone Drains: Nascimento catheter
[2024-12-10 09:26] VITALS: BP 121/74; PULSE 71; RESP 16; TEMP 36.5; O2SAT 95
[2024-12-10 09:31] VITALS: BP 107/68; PULSE 73; RESP 18; O2SAT 96
[2024-12-10 09:36] VITALS: BP 117/75; PULSE 66; RESP 18; O2SAT 100
[2024-12-10 09:41] VITALS: BP 110/79; PULSE 68; RESP 18; O2SAT 100
[2024-12-10] MEDS: Tranexamic Acid 1,000 MG in 0.9 % Sodium Chloride 50 ML 360 MG IV (09:53)
[2024-12-10 09:56] VITALS: BP 118/79; PULSE 59; RESP 18; TEMP 36.6; O2SAT 99
== END 2024-12-10 10:48 | disposition home or self-care (01) ==
PROVIDERS: PCP Internal Medicine; Visit Provider Urology
PROC: (CPT 52648; principal; 2024-12-10 07:30)
PROC: (CPT 52649; 2024-12-10 07:30)
DX: N40.1 Benign prostatic hyperplasia with lower urinary tract symptoms (principal); N13.8 Other obstructive and reflux uropathy; N21.0 Calculus in bladder; N32.89 Other specified disorders of bladder; Z87.442 Personal history of urinary calculi; K57.30 Diverticulosis of large intestine without perforation or abscess without bleeding; Z98.890 Other specified postprocedural states; Z87.891 Personal history of nicotine dependence
CPT/HCPCS: 52649; 52317; 88300; 88305; J1956; J2003; J2704; J3010

== ENCOUNTER → 2024-12-10 05:46 | Outpatient (BNV) | payer MEDICARE, OTHER, SELFPAY | PROVIDERS: PCP Internal Medicine; Visit Provider Urology | DX: N32.0 Bladder-neck obstruction (principal); N21.0 Calculus in bladder | CPT/HCPCS: 52317; 52649 ==

== ENCOUNTER → 2024-12-12 09:46 | Outpatient (BNVA) | payer MEDICARE, OTHER, SELFPAY | PROVIDERS: PCP Internal Medicine; Visit Provider Urology | DX: N40.1 Benign prostatic hyperplasia with lower urinary tract symptoms (principal); N13.8 Other obstructive and reflux uropathy; N21.0 Calculus in bladder; N32.89 Other specified disorders of bladder; R39.12 Poor urinary stream | CPT/HCPCS: 51700; 51798 ==

== ENCOUNTER 2025-01-23 14:26 | Outpatient (AMB) | payer MEDICARE, OTHER, SELFPAY ==
--- NOTE | 2025-01-23 14:27 | MHC.OFFVIS ---
Intake Visit Reasons: Greenlight- follow up Intake Note: Patient is present for GREENLIGHT F/U Urology Medication:NONE Antibiotic Allergy:NONE Blood Thinner:NONE Blind Hooker Required: No Allergies Seasonal Allergies Allergy (Mild, Verified 01/23/25 14:27) Itchy Eyes HPI Comments Details: Víctor NINO is a very pleasant male. He is a patient of Dr Boss. He is seen in the office today for the following urologic conditions. - lower urinary tract symptoms Three-month follow-up following revision laser procedure for bladder stone UA 2+ blood Lower Urinary Tract Symptoms: Prior treatments include 06/15 , laser procedure, 10/21 revision laser procedure for bladder stone in anterior prostate tissue Prostate Symptom Score 03/16 , Moderate (9-19), Bother 3 12/17 , Mild (0-8), Bother 2. Symptoms include 03/16 , incomplete emptying, weak stream, intermittency, nocturia (>2), and are progressing. Results from testing include cystoscopy Trilobar hypertrophy 03/16 renal/bladder us Yes date 03/23/2019 PVR 90 prostate size 90 Prostate volume 30-50gm. - PSA 12/17 2.9, 12/19 3.5, 12/20 3.8, 06/20 3.6 Testing at next visit will include bladder scan. [facility] Medical History (Updated 12/10/24 @ 06:23 by Keyona Swenson RN) Cataract, bilateral Bronchitis BPH (benign prostatic hyperplasia) Diverticulitis Diverticulosis History of kidney stones Surgical History (Updated 12/10/24 @ 06:22 by Keyona Swenson RN) H/O colonoscopy Hx of transurethral resection of prostate Hx of arthroscopic knee surgery History of surgery Family History Father History of lung cancer Social History Are you a primary career services coordinator to a significant other at home: No Do you presently have visiting nurse or other home services: No Alcohol intake: never Patient Tobacco Use Status: Former Tobacco user Tobacco use type: Cigarette Years Smoked: 19 service: No Current occupational status: employed Results AMB Urinalysis, Automated UA Leukoctes 70 Adiel/uL Last Edit by NICKI Roa on 01/23/25 14:53 UA Nitrite Negative Last Edit by Eduarda Clemente, [facility] on 01/23/25 14:53 UA Urobilinogen 0.2 mg/dL Last Edit by Eduarda Clemente, [facility] on 01/23/25 14:53 UA Protein 30 mg/dL Last Edit by Eduarda Clemente, [facility] on 01/23/25 14:53 UA pH 6.0 Last Edit by Eduarda Clemente, [facility] on 01/23/25 14:53 UA Blood 80 Da/uL Last Edit by Eduarda Clemente, [facility] on 01/23/25 14:53 UA Specific [place] 1.020 Last Edit by Eduarda Clemente, [facility] on 01/23/25 14:53 UA Ketone Negative Last Edit by Eduarda Clemente, [facility] on 01/23/25 14:53 UA Bilirubin 0 mg/dL Last Edit by Eduarda Clemente, [facility] on 01/23/25 14:53 UA Glucose 0 mg/dL Last Edit by Eduarda Clemente, [facility] on 01/23/25 14:53 Coding
--- OUTSIDE RECORDS SUMMARY | 2025-01-23 17:49 | XMS_ITS | Patient Health Record ---
Author Organization Jase Boss DO, [facility] Address [address] [place] [phone] Care Team Providers Care Dance Entertainer Name Role Phone ANJELMAURICIO NICOLAS Primary Care Provider Jase Ge Unavailable [phone] Jase Boss DO Unavailable ALLERGIES No Known Allergies RESULTS Component Value Reference Range Notes Complete Blood Count Auto Di ff Reviewed date:05/22/2024 09:18:41 AM Interpretation:Abnormal Performing Lab:[facility], [address] [place] [phone] Notes/Report: White Blood Count 5.4 4.8-10.8 X10*3/uL [...] Panel Reviewed date:05/22/2024 09:18:41 AM Interpretation:Abnormal Performing Lab:[facility], [address] [place] [phone] Notes/Report: Bilirubin Total 2.4 0.0-1.0 mg/dL Bilirubin Direct 0.7 0.0-0.5 mg/dL Aspartate Amino Transferase 19 5-37 U/L Alanine Aminotransferase 24 0-40 U/L Total Protein 7.0 6.5-8.0 g/dL Albumin Level 4.2 3.5-5.0 g/dL Alkaline Phosphatase 70 39-117 U/L Basic Metabolic Panel Reviewed date:05/22/2024 09:18:41 AM Interpretation:Abnormal Performing Lab:[facility], [address] [place] [phone] Notes/Report: Sodium 142 135-145 mmol/L Potassium 4.0 [...] Glomerular Filt Rate > 60 NOTE: For -Cymra[place] individuals, multiply the result by 1.210. Chronic Kidney Disease: Estimated GFR < 60 mL/min/1.73m2 Severe Kidney Disease: Estimated GFR < 15 mL/min/1.73m2 Glucose Random 130 60-115 mg/dL Calcium 9.6 8.4-10.2 mg/dL Lipase Reviewed date:05/22/2024 09:18:41 AM Interpretation:Normal Performing Lab:[facility], [address] [place] [phone] Notes/Report: Lipase 26 8-78 U/L UA CC w/rflx Micro + Cult Reviewed date:05/22/2024 09:18:59 AM Interpretation:Negative Performing Lab:[facility], [address] [place] [phone] Notes/Report: [id number] Urine, Clean Catch Color Urine Yellow Appearance Urine Clear PH 6.0 5.0-9.0 Glucose Urine UA Negative Negative mg/dL Urine Blood Negative Negative Specific [place] - Urine 1.010 1.005-1.025 Urine Protein Trace Neg-Trace mg/dL Urine Ketones Negative Negative mg/dL Nitrite Urine Negative Negative Leukocyte Esterase Urine Negative Negative Prostate Specific Antigen Reviewed date:06/23/2024 02:54:12 PM Interpretation:Normal Performing Lab:[facility], [address] [place] [phone] Notes/Report: Prostate Specific Antigen 3.60 <0.05-4.0 ng/mL PSA methodology: Horowitz Alinity i Chemiluminescent Microparticle Immunoassay (CMIA) Pathology Reviewed date:07/03/2024 09:21:39 AM Interpretation:Benign Performing Lab:[facility], [address] [place] [phone] Notes/Report: REASON FOR REFERRAL No Information IMMUNIZATIONS [...] Notes Problem Renal lithiasis (N20.0) Active confirmed 49101333 Problem Benign prostatic hyperplasia without lower urinary tract symptoms (N40.0) Active confirmed 723019958 Problem Vitamin D deficiency (E55.9) Active confirmed 18777144 Problem Long QT syndrome (I45.81) Active confirmed Long QT syndrome (0174170) Problem Cataract of both eyes, unspecified cataract type (H26.9) Active confirmed 93350915 VITAL SIGNS Blood pressure diastolic 68 mm Hg 08/08/2024 Height 69 in 08/08/2024 Blood pressure systolic 114 mm Hg 08/08/2024 Weight 207 lbs 08/08/2024 BMI 30.57 kg/m2 08/08/2024 Encounters Encounter Location Date Provider Diagnosis Jase Boss DO, [address] [phone] 08/08/2024 Jase Boss Cataract of both eyes, [...] Date MEDICARE [address] [place] [phone] [id number] Víctor Andre Self - patient is the [facility] [address] [place] [id number] Víctor Andre Self - patient is the insured MEDICAL (GENERAL) HISTORY Medical History History ICD Code diverticulosis diverticulitis renal lithiasis seasonal allergies cholelithiasis Benign prostatic hyperplasia without low er urinary tract symptoms N40.0 Surgical History Surgery Date(Month/Year) right knee arthroscopy tendon repair, distal right biceps laser TURP
--- OUTSIDE RECORDS SUMMARY | 2025-01-23 17:50 | XMS_ITS ---
Author Organization Jase Boss DO [facility] Address [address], [place] [phone] Care Team Providers Care Brick Chimney Builder Name Role Phone ANJELMAURICIO NICOLAS Primary Care Provider Jase Ge Unavailable [phone] Jase Boss DO Unavailable ALLERGIES No Known [...] eyes, unspecified cataract type (H26.9) Active confirmed [id number] VITAL SIGNS BMI 30.57 kg/m2 08/08/2024 Blood pressure systolic 114 mm Hg 08/08/20 24 Blood pressure diastolic 68 mm Hg 024 Height 69 in 08/08/2024 Weight 207 lbs 08/08/2024 Encounters Encounter Location Date Provider Diagnosis J[facility] Boss DO, [facility] [address] [place] [phone] 08/08/2024 Jase Boss Cataract of both eyes, [...] General Examination GENERAL APPEARANCE: in no ac [place] distress, well developed, well nourished HEAD: normocephalic, atrau matic HEART: no murmurs, regular rate and rhythm, S1, S2 normal LUNGS: clear to auscultatio n bilaterally ABDOMEN: normal, bowel sounds present, soft, nontender, nondistended SKIN: warm and dry EXTREMITIES: no edema PSYCH: alert, oriented, cog nitive function intact
== END 2025-01-23 15:24 | disposition home or self-care (01) ==
PROVIDERS: PCP Internal Medicine; Visit Provider Urology
DX: Z13.9 Encounter for screening, unspecified (principal)

== ENCOUNTER → 2025-01-23 14:26 | Outpatient (BNVA) | payer MEDICARE, OTHER, SELFPAY | PROVIDERS: PCP Internal Medicine; Visit Provider Urology | DX: N40.1 Benign prostatic hyperplasia with lower urinary tract symptoms (principal); N13.8 Other obstructive and reflux uropathy | CPT/HCPCS: 81003; 99212 ==

== ENCOUNTER 2025-06-21 13:27 | Outpatient (REF) | payer MEDICARE, OTHER, SELFPAY ==
[2025-06-21 14:33] LABS: Prostate Specific Antigen 3.40 ng/mL (<0.05-4.0)
== END 2025-06-21 13:28 | disposition home or self-care (01) ==
LOC: HO.LAB 13:27
PROVIDERS: Visit Provider Urology
DX: N40.1 Benign prostatic hyperplasia with lower urinary tract symptoms (principal); N13.8 Other obstructive and reflux uropathy
CPT/HCPCS: 36415; 84153

== ENCOUNTER 2025-07-02 08:31 | Outpatient (AMB) | payer MEDICARE, OTHER, SELFPAY ==
--- NOTE | 2025-07-02 08:32 | A.OFFVIS_ITS ---
Intake Visit Reasons: 6m/PSA/PVR Intake Note: Patient is present for 6 mo follow up Urology Medication:Tranexamic Antibiotic Allergy:NONE Blood Thinner:NONE PVR:96 mls Labs done : 06/21/2025 PSA 3.40 Pond Worker Required: No Accompanied by: Self / Same As Patient Allergies Seasonal Allergies Allergy (Mild, Verified 07/02/25 08:33) Itchy Eyes HPI Comments Details: Víctor NINO is a very pleasant male. He is a patient of Dr Boss. He is seen in the office today for the following urologic conditions. - lower urinary tract symptoms Six-month follow-up PVR 90 cc PSA normal range Off medications following procedure Happy with how urination going 12 month follow-up Lower Urinary Tract Symptoms: Prior treatments include 06/15 , laser procedure, 10/21 revision laser procedure for bladder stone in anterior prostate tissue Prostate Symptom Score 03/16 , Moderate (9-19), Bother 3 12/17 , Mild (0-8), Bother 2. Symptoms include 03/16 , incomplete emptying, weak stream, intermittency, nocturia (>2), and are progressing. Results from testing include cystoscopy Trilobar hypertrophy 03/16 renal/bladder us Yes date 03/23/2019 PVR 90 prostate size 90 Prostate volume 30-50gm. - PSA 12/17 2.9, 12/19 3.5, 12/20 3.8, 06/20 3.6, 06/21 3.4 Testing at next visit will include bladder scan. [facility] Medical History (Updated 12/10/24 @ 06:23 by Keyona Swenson RN) Cataract, bilateral Bronchitis BPH (benign prostatic hyperplasia) Diverticulitis Diverticulosis History of kidney stones Surgical History (Updated 12/10/24 @ 06:22 by Keyona Swenson RN) H/O colonoscopy Hx of transurethral resection of prostate Hx of arthroscopic knee surgery History of surgery Family History Father History of lung cancer Social History Are you a primary medicare biller to a significant other at home: No Do you presently have visiting nurse or other home services: No Alcohol intake: never Patient Tobacco Use Status: Former Tobacco user Tobacco use type: Cigarette Years Smoked: 19 service: No Current occupational status: employed Review of Systems Const Denies chills and Denies fever(s) Card Reports no additional complaints and Denies syncope Resp Denies cough GI Denies abdominal pain and Denies heartburn Reports as per HPI and Denies change in libido Neuro Denies syncope Psych Denies change in libido Endo Denies change in libido Physical Exam Const General: cooperative, healthy appearing, comfortable and no acute distress Orientation/consciousness: patient oriented x3 HEENT Face and sinus: Yes normal facial exam Mouth: moist mucous membranes Neck Neck: Yes normal visual inspection, Yes full ROM and Yes trachea midline Chest Chest palpation & inspection: normal inspection of the chest Resp Effort & Inspection: normal respiratory effort, able to speak in complete sentences and no respiratory distress GI Inspection: Yes normal to inspection Back/Spine/Pelvis Cervical Spine: normal cervical lordosis Thoracic/Lumbar Spine: thoracic and lumbar spine normal to inspection Skin General skin exam: no rashes or lesions noted Neuro General: patient oriented x3, gait normal, tone normal and moves all extremities Extrem General: Yes normal to inspection and Yes capillary refill normal Assessment & Plan Assessment & Plan (1) BPH w urinary obs/LUTS: Code(s): N40.1 - Benign prostatic hyperplasia with lower urinary tract symptoms; N13.8 - Other obstructive and reflux uropathy Category: Medical Plan Twelve month follow-up PSA office Orders: Orders Prostate Specific Antigen 12 Months N13.8 - Other obstructive and reflux uropathy, N40.1 - Benign prostatic hyperplasia with lower urinary tract symptoms Patient Instructions: This note is constructed using voice recognition software. While every effort has been made to ensure accuracy regional owner operator truck driver errors may have been included. Imaging studies, laboratory and physical exam results were discussed and reviewed in detail. No major barriers to patient understanding were identified. An opportunity to ask questions regarding the treatment plan was provided. All questions were answered. The patient expressed understanding and agreement with the above treatment plan. The patient is aware they should contact our office by phone for worsening of their current condition or the appearance of new urologic symptoms. Compliance is encouraged with any medications and followup testing that is ordered. It is a privilege to participate in the urologic care of your patient. If you have any questions or concerns regarding treatment for the above conditions, or other urologic issues, please do not hesitate to contact me. The office telephone contact is [phone]. Sincerely, Dr Miguel Tsai MD, MAH[facility] - Urology Compassionate Specialist Care for the Genitourinary System Coding Level of Care Code Est Pt Level 3 (44356) Complex EM visit Add On G2211 Diagnoses BPH w urinary obs/LUTS N40.1; N13.8
--- OUTSIDE RECORDS SUMMARY | 2025-07-02 08:42 | XMS_ITS | Encounter Summary ---
Author Organization [facility] Address [address] [place] [id number] Phone Care Team Providers Care Cafeteria Associate Name Role Phone Pcp, Unknown Primary Care Provider Jase Ge DO Primary Care Provider Encounter Details Date Type Department Care Team (Late st Contact Info) Description 10/05/2020 Procedure Pass [facility], Ct Scan - [address] [address] Social History Tobacco Use Types Packs/Day Years Used Date Smoking Tobacco: Former Smokeless Tobacco: Never Alcohol Use Standard Drinks/Week Comments Yes 0 (1 standard drink = 0.6 oz pur e alcohol) Sex and Gender Information Value Date Recorded Sex Assigned at Male 10/05/2020 12:03 AM EST Legal Sex Male 11:55 PM EST Gender Identity Male 10/05/2020 12:03 AM EST Sexual Orientation Straight 10/05/2020 12 :03 AM EST documented as of this encounter Plan of Treatment Not on file documented as of this encounter Visit Diagnoses Not on filedocumented in this encounter Care Teams Cafeteria Associate Relationship Specialty Start Date End Date Pcp, Unknown PCP - General 10/04/20 09/23/22 Jase Boss DO [address] [place] [id number] PCP - General Internal Medicine 09/24/22 documented as of this encounter Additional Source Comments The information contained in this document represents components of the legal health record. It is not the complete legal health record.[facility]
== END 2025-07-02 09:14 | disposition home or self-care (01) ==
LOC: HO.HUSH 08:31
PROVIDERS: PCP Internal Medicine; Visit Provider Urology
DX: N40.1 Benign prostatic hyperplasia with lower urinary tract symptoms (principal); N13.8 Other obstructive and reflux uropathy
CPT/HCPCS: 99213; G2211

== ENCOUNTER → 2025-07-02 08:31 | Outpatient (BNVA) | payer MEDICARE, OTHER, SELFPAY | PROVIDERS: PCP Internal Medicine; Visit Provider Urology | DX: N40.1 Benign prostatic hyperplasia with lower urinary tract symptoms (principal); N13.8 Other obstructive and reflux uropathy | CPT/HCPCS: 99212 ==